=== PATIENT | female | born 1960 | race Caucasian/White ===

== ENCOUNTER 2020-04-30 10:09 | Outpatient (REF) | payer OTHER, SELFPAY ==
[2020-04-30 10:40] LABS: COVID-19 Test Negative (Negative)
== END 2020-04-30 10:10 | disposition home or self-care (01) ==
LOC: HO.LAB 10:09
PROVIDERS: Visit Provider Internal Medicine
DX: Z20.828 Contact with and (suspected) exposure to other viral communicable diseases (principal)
CPT/HCPCS: 87635

== ENCOUNTER 2020-06-08 08:11 | Outpatient (REF) | payer OTHER, SELFPAY ==
--- NOTE | 2020-06-08 08:15 | MM_ITS ---
EXAMINATION: MM SCREENING DIGITAL BREAST TOMOSYNTHESIS, BILATERAL CLINICAL INFORMATION: Screening. Asymptomatic. The lifetime risk of breast cancer based on the Tyrer-Cuzick Model is 15.2%. COMPARISON: Mammography: June 03, 2019 and studies dating back to September 15, 2013 TECHNIQUE: Digital breast tomosynthesis is performed in both the craniocaudal and mediolateral oblique views along with computer-aided detection (CAD). Synthesized 2D images are generated from the tomosynthesis. FINDINGS: There are scattered areas of fibroglandular density (ACR BI-RADS breast composition Category b). There are no significant masses, abnormal calcifications, or other abnormalities. MM/MM tomosynthesis screening BI IMPRESSION: There are no significant changes from prior study. ASSESSMENT: BI-RADS 1: Negative RECOMMENDATION: Routine annual mammography screening. This patient's information was entered into a reminder system with a target due date for their next mammogram.
== END 2020-06-08 08:12 | disposition home or self-care (01) ==
LOC: HO.MAMMO 08:11
PROVIDERS: PCP Family Medicine; Visit Provider Family Medicine
DX: Z12.31 Encounter for screening mammogram for malignant neoplasm of breast (principal)
CPT/HCPCS: 77063; 77067

== ENCOUNTER 2021-01-17 11:45 | Outpatient (REF) | payer OTHER, SELFPAY ==
[2021-01-17 15:56] LABS: TSH reflex Free T4 0.37 uIU/mL (0.32-4.0); Vitamin D 25-OH Total 32.5 ng/mL (>30)
== END 2021-01-17 11:46 | disposition home or self-care (01) ==
LOC: HO.LAB 11:45
PROVIDERS: PCP Family Medicine; Visit Provider Family Medicine
DX: Z13.220 Encounter for screening for lipoid disorders (principal); Z86.39 Personal history of other endocrine, nutritional and metabolic disease
CPT/HCPCS: 36415; 82306; 84443

== ENCOUNTER 2021-07-25 15:08 | Outpatient (REF) | payer OTHER, SELFPAY ==
--- NOTE | ~2021-07-25 | MM_ITS ---
EXAMINATION: MM SCREENING DIGITAL BREAST TOMOSYNTHESIS, BILATERAL CLINICAL INFORMATION: Screening. Asymptomatic. The lifetime risk of breast cancer based on the Tyrer-Cuzick Model is 15%. COMPARISON: Mammography: 06/08/2020, 06/03/2019, 05/04/2018 TECHNIQUE: Digital breast tomosynthesis is performed in both the craniocaudal and mediolateral oblique views along with computer-aided detection (CAD). Synthesized 2D images are generated from the tomosynthesis. FINDINGS: There are scattered areas of fibroglandular density (ACR BI-RADS breast composition Category b). Breast tissue composition borders on heterogeneously dense in the bilateral retroareolar regions. Neither breast shows abnormal calcifications. The bilateral axilla and skin contours are unremarkable. Right breast is no interval mass or architectural abnormality or developing density. Left CC view has questionable small asymmetric density posterior outer quadrant approximately 6 cm from nipple. There is no correlate on MLO view and finding is likely related to incompletely compressed glandular tissue or summation artifact. Patient will be recalled for additional imaging. MM/MM tomosynthesis screening BI IMPRESSION: 1. Left: Asymmetric density posterior outer breast on CC view possibly summation artifact or incompletely compressed glandular tissue. 2. Right: No mammographic evidence of malignancy. ASSESSMENT: BI-RADS 0: Incomplete - Need Additional Imaging Evaluation RECOMMENDATION: 1. Additional views of the left breast (spot CC, rolled CC x2). 2. Targeted ultrasound if warranted after review of the additional views. 3. Radiology department staff will contact the patient for additional imaging. This patient's information was entered into a reminder system with a target due date for their next mammogram.
== END 2021-07-25 15:09 | disposition home or self-care (01) ==
LOC: HO.MAMMO 15:08
PROVIDERS: PCP Family Medicine; Visit Provider Obstetrics & Gynecology
DX: Z12.31 Encounter for screening mammogram for malignant neoplasm of breast (principal)
CPT/HCPCS: 77063; 77067

== ENCOUNTER 2021-08-08 14:16 | Outpatient (REF) | payer OTHER, SELFPAY ==
--- NOTE | ~2021-08-08 | US_ITS ---
EXAMINATION: US DIAGNOSTIC ULTRASOUND BREAST, LEFT CLINICAL INFORMATION: Asymmetry lateral aspect. COMPARISON: Mammography of same day and July 25, 2021. TECHNIQUE: Ultrasound of the breast is performed with real-time porter scale imaging and color Doppler. FINDINGS: There is no focal suspicious finding. There is no solid mass, architectural abnormality, duct ectasia, or edema in the soft tissue planes. Results are discussed with the patient at time of visit. US/US breast LT limited IMPRESSION: No suspicious ultrasound abnormality of the left breast identified. ASSESSMENT: BI-RADS 1: Negative RECOMMENDATION: Routine annual mammography screening. This patient's information was entered into a reminder system with a target due date for their next mammogram.
--- NOTE | ~2021-08-08 | MM_ITS ---
EXAMINATION: MM DIAGNOSTIC DIGITAL BREAST TOMOSYNTHESIS, LEFT CLINICAL INFORMATION: Question small asymmetric density posterior outer left breast approximately 6 cm from nipple. COMPARISON: Mammography: July 25, 2021 and studies dating back to September 15, 2013 TECHNIQUE: Digital breast tomosynthesis is performed. 2D images are generated from the tomosynthesis. The following views are obtained: Full-field left rolled craniocaudal views. Spot compression left craniocaudal view and 90 degree mediolateral view. Targeted left breast ultrasound. FINDINGS: The breasts are heterogeneously dense, which may obscure small masses (ACR BI-RADS breast composition Category c). The additional views demonstrate the region of question to have represented superimposition of fibroglandular tissue with no definite persistent suspicious mass remaining and with a similar appearance to previous studies dating back to July 08, 2011. Targeted ultrasound to the lateral aspect of the left breast did not demonstrate any abnormal cystic or solid lesions. No region of abnormal distal sound shadowing was appreciated. No edematous change within the parenchyma is seen. Results are discussed with the patient at time of visit. MM/MM tomosynthesis added views L IMPRESSION: No persistent suspicious left breast finding. ASSESSMENT: BI-RADS 1: Negative RECOMMENDATION: Routine annual mammography screening. This patient's information was entered into a reminder system with a target due date for their next mammogram.
== END 2021-08-08 14:17 | disposition home or self-care (01) ==
LOC: HO.MAMMO 14:16
PROVIDERS: Visit Provider Obstetrics & Gynecology
DX: N64.89 Other specified disorders of breast (principal)
CPT/HCPCS: 76642; 77061; 77065

== ENCOUNTER 2021-10-17 08:20 | Outpatient (REF) | payer OTHER, SELFPAY ==
[2021-10-17 08:55] LABS: MANUAL DIFF FLAG NO
[2021-10-17 09:24] LABS: Basophils Absolute Auto 0.1 X10*3/uL (0.0-0.2); Basophils Percent Auto 1.4 % (0-2); Eosinophils Absolute Auto 0.1 X10*3/uL (0.0-0.4); Eosinophils Percent Auto 2.4 % (0-4); Hematocrit 42.5 % (37.0-47.0); Hemoglobin 14.2 g/dl (12.0-16.0); Imm Gran Abs Auto 0.01 X10*3/uL (0.00-0.03); Imm Gran Pct Auto 0.2 % (0.0-0.4); Lymphocytes Absolute Auto 1.5 X10*3/uL (1.2-4.9); Lymphocytes Percent Auto 30.5 % (20-40); Mean Corpuscular HGB Conc 33.4 g/dl (31.0-35.0); Mean Corpuscular Hemoglobin 30.4 pg (27.0-33.0); Monocytes Absolute Auto 0.5 X10*3/uL (0.1-1.2); Monocytes Percent Auto 9.6 % (2-11); Neutrophils Absolute Auto 2.8 x10*3/uL (2.0-8.3); Neutrophils Percent Auto 55.9 % (45-73); Platelet Count 198 X10*3/uL (160-400); Red Blood Count 4.67 X10*6/uL (4.20-5.50); Red Cell Distribution Width 12.1 % (11.0-16.0)
[2021-10-17 09:30] LABS: Estimated Average Glucose 103 mg/dL; Hemoglobin A1c % 5.2 %
[2021-10-17 09:56] LABS: Alanine Aminotransferase 19 U/L (0-31); Albumin Level 4.5 g/dL (3.5-5.0); Alkaline Phosphatase 81 U/L (39-117); Anion Gap 13 (12-20); Aspartate Amino Transferase 23 U/L (5-31); Bilirubin Total 0.6 mg/dL (0.0-1.0); Blood Urea Nitrogen 17 mg/dL (9-16); C Reactive Protein 0.09 mg/dL (< or = 0.50); Calcium 9.9 mg/dL (8.4-10.2); Carbon Dioxide 29 mmol/L (22-29); Chloride 103 mmol/L (96-108); Cholesterol 291 mg/dL; Estimated Glomerular Filt Rate > 60; Glucose Random 91 mg/dL (60-115); HDL Cholesterol 86 mg/dL; LDL Cholesterol Calculated 189 mg/dl; Rheumatoid Factor < 15.0 IU/mL (<15.0); Sodium 140 mmol/L (135-145); Total Protein 7.4 g/dL (6.5-8.0); Triglycerides 81 mg/dL; Uric Acid 4.1 mg/dL (2.4-5.7)
[2021-10-17 10:20] LABS: Free T4 (Free Thyroxine) 1.07 ng/dL (0.71-1.85); Thyroid Stimulating Hormone 1.35 uIU/mL (0.32-4.0)
[2021-10-17 10:44] LABS: Insulin 6 uU/mL (2-29)
[2021-10-18 10:06] LABS: Thyroglobulin Antibodies <1 IU/mL (< or = 1); Thyroid Peroxidase Antibodies 1 IU/mL (<9)
[2021-10-20 13:46] LABS: Anti Nuclear Antibody Screen NEGATIVE (NEGATIVE)
[2021-10-22 17:51] LABS: Triiodothyronine T3 Reverse 15 ng/dL (8-25)
== END 2021-10-17 08:21 | disposition home or self-care (01) ==
LOC: HO.LAB 08:20
PROVIDERS: PCP Registered Nurse; Visit Provider Registered Nurse
DX: R73.01 Impaired fasting glucose (principal); E55.9 Vitamin D deficiency, unspecified; E78.2 Mixed hyperlipidemia; I10 Essential (primary) hypertension; M06.4 Inflammatory polyarthropathy; R53.83 Other fatigue; E03.9 Hypothyroidism, unspecified
CPT/HCPCS: 36415; 80053; 80061; 82306; 83036; 83525; 84439; 84443; 84482; 84550; 85025; 86038; 86039; 86140; 86376; 86431; 86800

== ENCOUNTER 2022-05-27 10:33 | Outpatient (REF) | payer OTHER, SELFPAY ==
[2022-05-27 10:52] LABS: MANUAL DIFF FLAG NO
[2022-05-27 11:02] LABS: Basophils Absolute Auto 0.1 X10*3/uL (0.0-0.2); Basophils Percent Auto 1.1 % (0-2); Eosinophils Absolute Auto 0.1 X10*3/uL (0.0-0.4); Eosinophils Percent Auto 1.8 % (0-4); Hematocrit 40.9 % (37.0-47.0); Hemoglobin 13.6 g/dl (12.0-16.0); Lymphocytes Absolute Auto 1.3 X10*3/uL (1.2-4.9); Lymphocytes Percent Auto 30.2 % (20-40); Mean Corpuscular HGB Conc 33.3 g/dl (31.0-35.0); Mean Corpuscular Hemoglobin 30.3 pg (27.0-33.0); Mean Corpuscular Volume 91.1 fL (80.0-98.0); Mean Platelet Volume 8.7 fL (9.4-12.3); Monocytes Absolute Auto 0.4 X10*3/uL (0.1-1.2); Monocytes Percent Auto 9.7 % (2-11); Neutrophils Absolute Auto 2.5 x10*3/uL (2.0-8.3); Neutrophils Percent Auto 57.2 % (45-73); Platelet Count 208 X10*3/uL (160-400); Red Blood Count 4.49 X10*6/uL (4.20-5.50); Red Cell Distribution Width 11.9 % (11.0-16.0); White Blood Count 4.4 X10*3/uL (4.8-10.8)
[2022-05-27 12:20] LABS: Alanine Aminotransferase 17 U/L (0-31); Albumin Level 4.6 g/dL (3.5-5.0); Alkaline Phosphatase 81 U/L (39-117); Anion Gap 12 (12-20); Aspartate Amino Transferase 23 U/L (5-31); Bilirubin Total 0.4 mg/dL (0.0-1.0); Blood Urea Nitrogen 16 mg/dL (9-16); Calcium 9.7 mg/dL (8.4-10.2); Carbon Dioxide 32 mmol/L (22-29); Chloride 103 mmol/L (96-108); Cholesterol 283 mg/dL; Estimated Glomerular Filt Rate > 60; Glucose Random 91 mg/dL (60-115); HDL Cholesterol 87 mg/dL; LDL Cholesterol Calculated 185 mg/dl; Potassium 4.9 mmol/L (3.3-5.1); Sodium 142 mmol/L (135-145); Total Protein 7.2 g/dL (6.5-8.0); Triglycerides 57 mg/dL; Uric Acid 4.2 mg/dL (2.4-5.7)
[2022-05-27 12:34] LABS: Free T4 (Free Thyroxine) 1.02 ng/dL (0.71-1.85); Insulin 7 uU/mL (2-29); Thyroid Stimulating Hormone 0.58 uIU/mL (0.32-4.0)
[2022-05-29 17:41] LABS: Thyroglobulin Antibodies <1 IU/mL (< or = 1); Thyroid Peroxidase Antibodies 1 IU/mL (<9)
[2022-06-01 15:07] LABS: Triiodothyronine T3 Reverse 15 ng/dL (8-25)
[2022-06-02 21:42] LABS: Apolipoprotein B 113 mg/dL (<90)
== END 2022-05-27 10:34 | disposition home or self-care (01) ==
LOC: HO.LAB 10:33
PROVIDERS: PCP Registered Nurse; Visit Provider Registered Nurse
DX: I10 Essential (primary) hypertension (principal); E03.9 Hypothyroidism, unspecified; E55.9 Vitamin D deficiency, unspecified; E78.5 Hyperlipidemia, unspecified; R53.83 Other fatigue; M13.0 Polyarthritis, unspecified
CPT/HCPCS: 80053; 80061; 82172; 83525; 84439; 84443; 84482; 84550; 85025; 86376; 86800

== ENCOUNTER 2023-07-01 06:17 | Outpatient (REF) | payer OTHER, SELFPAY ==
[2023-07-01 06:41] LABS: MANUAL DIFF FLAG NO
[2023-07-01 07:24] LABS: Estimated Average Glucose 105 mg/dL; Hemoglobin A1c % 5.3 % (<6.0)
[2023-07-01 07:25] LABS: Basophils Absolute Auto 0.1 X10*3/uL (0.0-0.2); Basophils Percent Auto 1.7 % (0-2); Eosinophils Absolute Auto 0.1 X10*3/uL (0.0-0.4); Eosinophils Percent Auto 2.4 % (0-4); Hematocrit 41.7 % (37.0-47.0); Imm Gran Abs Auto 0.01 X10*3/uL (0.00-0.03); Imm Gran Pct Auto 0.2 % (0.0-0.4); Lymphocytes Absolute Auto 1.6 X10*3/uL (1.2-4.9); Lymphocytes Percent Auto 35.4 % (20-40); Mean Corpuscular HGB Conc 33.6 g/dl (31.0-35.0); Mean Corpuscular Hemoglobin 30.6 pg (27.0-33.0); Mean Platelet Volume 8.7 fL (9.4-12.3); Monocytes Absolute Auto 0.4 X10*3/uL (0.1-1.2); Monocytes Percent Auto 9.4 % (2-11); Neutrophils Absolute Auto 2.3 x10*3/uL (2.0-8.3); Neutrophils Percent Auto 50.9 % (45-73); Platelet Count 240 X10*3/uL (160-400); Red Blood Count 4.58 X10*6/uL (4.20-5.50); White Blood Count 4.6 X10*3/uL (4.8-10.8)
[2023-07-01 07:51] LABS: Alanine Aminotransferase 12 U/L (0-31); Albumin Level 4.4 g/dL (3.5-5.0); Alkaline Phosphatase 76 U/L (39-117); Anion Gap 12 (12-20); Aspartate Amino Transferase 16 U/L (5-31); Bilirubin Total 0.4 mg/dL (0.0-1.0); Blood Urea Nitrogen 20 mg/dL (9-16); Carbon Dioxide 30 mmol/L (22-29); Chloride 104 mmol/L (96-108); Cholesterol 287 mg/dL (<200); Estimated Glomerular Filt Rate > 60; Glucose Random 97 mg/dL (60-115); HDL Cholesterol 77 mg/dL (>40); LDL Cholesterol Calculated 192 mg/dL (<100); Potassium 4.2 mmol/L (3.3-5.1); Sodium 142 mmol/L (135-145); Total Protein 7.3 g/dL (6.5-8.0); Triglycerides 90 mg/dL (<150)
[2023-07-01 08:08] LABS: Insulin 5 uU/mL (2-29); Thyroid Stimulating Hormone 0.86 uIU/mL (0.32-4.0); Vitamin D 25-OH Total 48.3 ng/mL (>30)
[2023-07-02 23:03] LABS: Thyroglobulin Antibodies <1 IU/mL (< or = 1)
[2023-07-07 08:38] LABS: Triiodothyronine T3 Reverse 12 ng/dL (8-25)
[2023-07-07 15:34] LABS: Apolipoprotein A1 216 mg/dL (>=125); Apolipoprotein B 125 mg/dL (<90)
== END 2023-07-01 06:18 | disposition home or self-care (01) ==
LOC: HO.LAB 06:17
PROVIDERS: PCP Registered Nurse; Visit Provider Registered Nurse
DX: R53.83 Other fatigue (principal); E05.90 Thyrotoxicosis, unspecified without thyrotoxic crisis or storm; E78.00 Pure hypercholesterolemia, unspecified
CPT/HCPCS: 36415; 80053; 80061; 82172; 82306; 83036; 83525; 84436; 84443; 84482; 85025; 86800

== ENCOUNTER 2023-10-19 07:47 | Outpatient (REF) | payer OTHER, SELFPAY ==
--- NOTE | ~2023-10-19 | XR_ITS ---
EXAMINATION: XR SHOULDER, LEFT CLINICAL INFORMATION: Unspecified injury left shoulder. COMPARISON: None available. TECHNIQUE: AP external rotation, Grashey, scapular Y, and axillary views of the left shoulder. FINDINGS: Degenerative changes with joint space narrowing, hypertrophic change and soft tissue calcifications at the acromioclavicular joint. Glenohumeral alignment preserved. Degenerative changes in the imaged upper thoracic spine. XR/XR shoulder LT min 2V IMPRESSION: Moderate changes at the acromioclavicular joint.
== END 2023-10-19 07:48 | disposition home or self-care (01) ==
LOC: HO.XRAY 07:47
PROVIDERS: Visit Provider Registered Nurse
DX: S40.912A Unspecified superficial injury of left shoulder, initial encounter (principal)
CPT/HCPCS: 73030

== ENCOUNTER 2023-11-15 18:04 | Outpatient (REF) | payer OTHER, SELFPAY ==
--- NOTE | ~2023-11-15 | MR_ITS ---
EXAMINATION: MR SHOULDER WITHOUT CONTRAST, LEFT CLINICAL INFORMATION: Acute pain. COMPARISON: None available. TECHNIQUE: MRI of the shoulder without contrast was performed on a high-field scanner. Incomplete study. MRI mechanical tissues. Study could not be completed. A coronal T1, axial T2 fat-sat, sagittal T2 sequence obtained. FINDINGS: Limited incomplete study. Structures are not reliably evaluated. Repeat MRI is recommended. On the limited sequences, the suspected findings are as follows: ROTATOR CUFF: Heterogeneous T1 signal in the supraspinatus and infraspinatus tendon could reflect tendinosis, not reliably evaluated. Teres minor is intact. Mild subscapularis tendinosis, with deep surface fraying. No muscle atrophy or fatty infiltration. BICEPS: Grossly intact CORACOACROMIAL ARCH: The undersurface of the acromion is flat with mild lateral downsloping. Suspected mild acromioclavicular arthritis. LABRUM/CAPSULE: Incompletely evaluated. Small caliber of the anterior and posterior labrum. GLENOHUMERAL JOINT/MARROW: No acute fracture is identified on the limited sequences. Small effusion. MR/MR shoulder LT wo con IMPRESSION: Limited incomplete study. Structures not reliably evaluated. Repeat MRI is recommended. Suspected findings are as follows: 1. Mild subscapularis tendinosis, deep surface fraying. 2. Question supraspinatus and infraspinatus tendinopathy. 3. Small glenohumeral joint effusion.
== END 2023-11-15 18:05 | disposition home or self-care (01) ==
LOC: HO.MRI 18:04
PROVIDERS: PCP Registered Nurse; Visit Provider Registered Nurse
DX: M25.512 Pain in left shoulder (principal); M54.10 Radiculopathy, site unspecified
CPT/HCPCS: 73221

== ENCOUNTER 2023-12-01 07:48 | Outpatient (AMB) | payer OTHER, SELFPAY ==
--- NOTE | 2023-12-01 08:07 | A.OFFVIS_ITS ---
Vital Signs 12/01/23 08:14 Height 5 ft 4 in Weight 130 lb BMI 22.3 Handedness Right Intake Visit Reasons: New Pt - Left Shoulder Pain Intake Note: Selena a 63 year old right hand dominant female who presents today as a new patient for an evaluation of left shoulder pain. MRI was done on 11/15/23. Patient reports ongoing pain since May of last year. Patient denies any injury. History of 10 sessions of PT which was making her pain a little worse, however she is doing a little better with rest. Pain is worse at night which wakes her up. She states that her pain is focused on the anterior and postierer aspect of the shoulder and sometime radiates up to her neck. Allergies No Known Allergies Allergy (Verified 12/01/23 08:13) HPI HPI New Pt - Left Shoulder Pain: Details: 63-year-old right hand dominant female who presents to the office today for evaluation of left shoulder pain for 7 months. She currently states she has a dull achy pain at the anterior and posterior aspect of her left shoulder that radiates up to her neck and down to her elbow. Her pain is aggravated with reaching back, wearing clothes and at night which wakes her up and limits her with going to the gym. She has not had any shoulder injury in the past. She finds mild relief with rest and minimal relief with ice and ibuprofen. She works in physical therapy back office and had attended 10 physical therapy sessions which made her pain a little worse and she was referred to our office. She does not have a history of diabetes. [facility] Social History (Updated 12/01/23 @ 08:14 by Will Erwin) Alcohol intake: current Alcohol intake frequency: holidays/special occasions only Patient Tobacco Use Status: Never used Tobacco Current occupational status: employed Current occupation: Physical therapy/ right hand dominant Review of Systems Const All systems reviewed & are unremarkable except as noted in HPI and below Physical Exam Vital Signs: BMI result Body Mass Index 22.3 Const General: cooperative, healthy appearing, comfortable, no acute distress, well developed and alert Orientation/consciousness: patient oriented x3 HEENT Head: Yes normal to inspection, Yes normocephalic and Yes atraumatic Eyes General: appearance normal, both eyes and all related structures Resp Effort & Inspection: normal respiratory effort and able to speak in complete sentences Cardio Rate: regular rate Peripheral pulses: Peripheral pulses 2+ throughout GI Palpation (GI): Soft to palpation Skin Lesions: no lesions Rashes: no rashes Neuro General: patient oriented x3 Extrem Other: Left shoulder normal to inspection. Tenderness over the bicipital groove and along the deltoid region of the shoulder. Forward flexion to 175, external rotation to 90, internal rotation to S1. 5/5 RTC strength. Positive Lawrence and O'Briens. NVI. Results Reviewed Results Reviewed: XR shoulder LT min 2V IMPRESSION: Moderate changes at the acromioclavicular joint. IMPRESSION: 1. Mild-moderate supraspinatus and infraspinatus tendinosis. No measurable tear or tendon retraction is seen. 2. Mild subscapularis tendinosis with deep surface fraying. 3. Questionable mild biceps tendinosis. 4. Mild-moderate acromioclavicular arthritis. 5. Posterosuperior labral findings suggesting degeneration with fraying/tear. 6. Small glenohumeral joint effusion. Assessment & Plan Assessment & Plan (1) Biceps tendonitis on right: Code(s): M75.21 - Bicipital tendinitis, right shoulder Category: Medical (2) Tendonitis of left rotator cuff: Code(s): M75.82 - Other shoulder lesions, left shoulder Category: Medical Plan We discussed options which include PT, NSAIDs and injections. The patient will defer on the injection today and proceed with PT and NSAIDs. A prescription for ibuprofen was also sent to her pharmacy which she will take for 2 weeks. If symptoms persist or worsens over next 6 weeks, patient will contact the office to proceed with a left shoulder steroid injection, otherwise follow-up as needed. Orders: Orders PT Evaluation and Treatment Today M75.21 - Bicipital tendinitis, right shoul anamika, M75.82 - Other shoulder lesions, left shoulder Medications: New ibuprofen 800 mg PO Q8H PRN 90 tabs 3RF pain 30 days S52.209D - Unspecified fracture of shaft of unspecified ulna, subsequent encounter for closed fracture with routine healing Patient Instructions: Scribed for Tom Saldivar PA-C, by Fransisco Manzano medical office manager, on 12/01/2023 at 8:00 AM EST.? I, Tom Saldivar PA-C, have personally reviewed and agree with the information entered by the scribe. Coding Level of Care Code New Pt Level 3 (66924) Diagnoses Biceps tendonitis on right M75.21 Tendonitis of left rotator cuff M75.82
[2023-12-01 08:14] VITALS: BMI 22.3
== END 2023-12-01 08:57 | disposition home or self-care (01) ==
PROVIDERS: PCP Registered Nurse; Visit Provider Physician Assistant
DX: M75.21 Bicipital tendinitis, right shoulder (principal); M75.82 Other shoulder lesions, left shoulder
CPT/HCPCS: 99204

== ENCOUNTER → 2023-12-01 07:48 | Outpatient (BNVA) | payer OTHER, SELFPAY | PROVIDERS: PCP Registered Nurse; Visit Provider Physician Assistant ==

== ENCOUNTER 2023-12-21 07:56 | Outpatient (AMB) | payer OTHER, SELFPAY ==
--- NOTE | 2023-12-21 08:00 | A.OFFPC_ITS ---
Vital Signs 12/21/23 08:01 Height 5 ft 4 in Weight 131 lb BMI 22.5 BP 138/54 L Blood Pressure Location Rt brachial Position Sitting Pulse 76 Pulse Source Pulse Oximeter Pulse Oximetry (%) 98 Oxygen Delivery Method Room Air Intake Visit Reasons: establish care Is last menstrual period known: Yes (age 49) Post menopausal: Yes Allergies No Known Allergies Allergy (Verified 12/21/23 08:02) Medication List - Last Reconciled 12/21/23 by ALIA ElizondoP- acetaminophen (Acetaminophen Extra Strength) 500 mg PO Q6H PRN ibuprofen 800 mg PO Q8H PRN 30 days lisinopril 20 mg PO DAILY Tobacco use date assessed: 12/21/23 Dental Screening Dental Screen Date: 12/21/23 Did you have a dental visit in the last 12 months?: Yes Did you have a dental problem in the last 6 months where you did not have access to dental care?: No Was dental information given to patient?: Patient has dentist HPI HPI Comments History of Present Illness Details 63-year-old female with hyperlipidemia, bicep tedonitis, elevated lipoprotein B, graves disease Family hx: Father: age 49 [address] Mom Breast CA Health Maintenance: ? Colon age 54 @ [facility]. Normal. Interested in cologaurd. ? Mammo 08/08/21, ordered today ? DEXA due, ordered today ? PAP @ [facility] in [facility] Fall 2021 normal. Aged out. Reports hx of normal. No family hx. ? Tdap UTD in last 10 years. Specialists: Endo - Dr Jorge Johns > cleared Ortho PT Here today to establish care. Coming from [facility]. No old medical records available to me. Callystro review shows the last labs 07/01/2023 show chronically low WBC 4.6, and MPV, otherwise normal CBC, normal CMP, total cholesterol 287, LDL 192, HDL 77, normal apolipoprotein a and elevated apolipoprotein B, normal vitamin-D, normal thyroid functions Hyperthyroidism/Graves dx around age 49, on treatment for 2 years, Atenolol and methimazole. Endo visits [id number]. Then weaned off medications and has been w/o meds and w/o sx since this time. Left shoulder tendonitis, started in May after working out at the gym. Using APAP and NSAIDS. In September started PT. Fairchance like PT made it worse. Completed PT October. Had Xrays done by previous PCP. Negative. MRI then completed November 2023. Not a tear but a moderate tendonosis. Went to see Ortho. Offered inj vs surgery. Declined at this time. Completed 2 week NSAID therapy on Wednesday. Is back to PT for the L shoulder with + effect. Worries she has something else going on wondering why she is not recovering. Having low back resolved s/p PT. Has mild anxiety and depressive sx related social circumstances and aging. Started in the last year. HTn well controlled on current med. does not want to be on meds if she does not have to. Plan: Would like autoimmune work up. Refer to Cards for + apolipo B and family hx Return to gym to help mental health. RTO Sept for FU HTN, Mood and Cardiac referral, sooner as needed. ON LICENSE OF [facility] Medical History (Updated 12/21/23 @ 09:11 by Sadaf Laboy, [employer]-) Biceps tendonitis on right Family History Mother No problems noted. Social History (Updated 12/01/23 @ 08:14 by Will Erwin) Housing: House Alcohol intake: current Alcohol intake frequency: holidays/special occasions only Patient Tobacco Use Status: Never used Tobacco e-Cigarette/Vaping Use: Never Used Second Hand Smoke Exposure: No Current occupational status: employed Current occupation: Physical therapy/ right hand dominant Cognitive needs: No Hearing needs: No Vision needs: Yes Questionnaire PHQ-9 Over the last 2 weeks, how often have you been bothered by any of the following problems? 1. Little interest or pleasure in doing things: not at all 2. Feeling down, depressed, or hopeless: not at all 3. Trouble falling or staying asleep, or sleeping too much: not at all 4. Feeling tired or having little energy: several days 5. Poor appetite or overeating: not at all 6. Feeling bad about yourself - or that you are a failure or have let yourself or your family down: not at all 7. Trouble concentrating on things, such as reading the newspaper or watching television: not at all 8. Moving or speaking so slowly that other people could have noticed. Or the opposite - being so fidgety or restless that you have been moving around a lot more than usual: not at all 9. Thoughts that you would be better off or of hurting yourself in some way: not at all Total score: 1 Depression Screening Interpretation: Negative Depression Screening Done: Yes 95878 - PHQ-9 Billing: Yes Source: Developed by Drs. Reed Harrison, Rosita Patton, Crispin Michele and colleagues, with an educational rick from [employer]. Thrive Questionnaire Date Thrive assessed: 12/21/23 I am a: Patient What is your living situation today?: I have a steady place to live Within the past 12 months, did the food you bought not last and you didn't have the money to get more?: Never true Within the past 12 months, did you worry whether your food would run out before you got money to buy more?: Never true Do you have trouble paying for medicines?: No Do you have trouble getting transportation to medical appointments?: No Do you have trouble paying your heating and electricity bill?: No Do you have trouble taking care of your child, family member or friend?: No Do you have trouble with day-to-day activities such as bathing, preparing meals, shopping, managing finances, etc.?: No Are you currently unemployed and looking for a job?: No Are you interested in more education?: No Please select the resources that you would like help with: None Currently or been in a relationship where the following occur: no concerns reported THRIVE Score: 0 AUDIT C Alcohol Use Questionnaire (AUDIT-C) 1. How often do you have a drink containing alcohol?: Monthly or less 2. How many drinks containing alcohol do you have on a typical day when you are drinking?: 1 or 2 3. How often do you have six or more drinks on one occasion?: Never Total Score: 1 Score Reviewed/Action Taken: Yes TANNER-7 AMB Questionnaire TANNER-7 Date TANNER - 7 assessed: 12/21/23 Feeling nervous, anxious, or on edge: 0 = Not at all Not being able to stop or control worryin = Not at all Worrying too much about different things: 0 = Not at all Trouble relaxin = Not at all Being so restless that it is hard to sit still: 0 = Not at all Becoming easily annoyed or irritable: 0 = Not at all Feeling afraid as if something awful might happen: 0 = Not at all Total TANNER-7 score (0-4 normal; 5-9 mild; 10-14 moderate; 15-21 severe): 0 Source: Developed by Drs. Reed Harrison, Rosita Patton, Crispin Michele and colleagues, with an educational rick from [employer]. TANNER-7 Assessment Billing TANNER-7 Assessment Tool: TANNER-7 Assessment 43397 Review of Systems Const All systems reviewed & are unremarkable except as noted in HPI and below Physical exam (Primary Care) Vital Signs: Last Vital Signs Pulse 76 12/21/23 08:01 BP 138/54 L 12/21/23 08:01 Pulse Ox 98 12/21/23 08:01 Oxygen Delivery Method Room Air 12/21/23 08:01 BMI result Body Mass Index 22.5 Tobacco/Smoking Status: Tobacco use Status Tobacco use date assessed 12/21/23 12/21/23 08:19 Patient Tobacco Use Status Never used Tobacco 12/21/23 08:02 e-Cigarette/Vaping Use Never Used 12/21/23 08:19 PHQ-9: PHQ-9 Score PHQ-9: Total score 1 12/21/23 08:12 Depression Screening Interpretation: Negative Thrive Assessment: Date of Thrive Assessment Date Thrive assessed 12/21/23 12/21/23 08:12 Currently or been in a relationship where the following occur: no concerns reported Const Other: awake alert NAD RRR LS CTAB No edema BLE Limited ROM all directions L shoulder Mood and affect approp Assessment and Plan Assessment & Plan (1) 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 managed by endo in the past euthyroid on labs 06/2023 Code(s): E05.00 - Thyrotoxicosis with diffuse goiter without thyrotoxic crisis or storm (5) HTN (hypertension): Comment: well controlled on lisinopril 20mg , cont Code(s): I10 - Essential (primary) hypertension Qualifiers: Hypertension type: primary hypertension Qualified Code(s): I10 - Essential (primary) hypertension Plan This note is constructed using voice recognition software. While every effort has been made to ensure accuracy in dining room server, still errors may have been included Sometimes, these errors may affect the content or meaning of the given sentence . Total time spent caring for the patient today was 40 minutes. This includes time spent before the visit reviewing the chart, time spent during the visit, and time spent after the visit on documentation Orders: Orders LESLEE Reflex Titer and Pattern Today M79.10 - Myalgia, unspecified site Lyme IgG/IgM w/reflex to WB Today M79.10 - Myalgia, unspecified site CRP High Sensitivity Today M79.10 - Myalgia, unspecified site Erythrocyte Sedimentation Rate Today M79.10 - Myalgia, unspecified site MM screening mammo BI Today Z12.31 - Encounter for screening mammogram for malignant neoplasm of breast XR DEXA axial skeleton Today Z78.0 - Asymptomatic menopausal state Referrals Cardiology Referral E78.01 - Familial hypercholesterolemia Cologuard Test Z12.11 - Encounter for screening for malignant neoplasm of colon, Z12.12 - Encounter for screening for malignant neoplasm of rectum Medications: New lisinopril 20 mg PO DAILY 90 tabs 1RF Patient Instructions: Plan: Would like autoimmune work up. Refer to Cards for + apolipo B and family hx Return to gym to help mental health. RTO Sept for FU HTN, Mood and Cardiac referral, sooner as needed. 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
[2023-12-21 08:01] VITALS: BP 138/54; PULSE 76; O2SAT 98; BMI 22.5
== END 2023-12-21 08:52 | disposition home or self-care (01) ==
PROVIDERS: PCP Nurse Practitioner Family; Visit Provider Nurse Practitioner Family
DX: E78.01 Familial hypercholesterolemia (principal); M79.10 Myalgia, unspecified site; Z78.0 Asymptomatic menopausal state; E05.00 Thyrotoxicosis with diffuse goiter without thyrotoxic crisis or storm; I10 Essential (primary) hypertension
CPT/HCPCS: 99204

== ENCOUNTER 2023-12-23 07:01 | Outpatient (REF) | payer OTHER, SELFPAY ==
[2023-12-23 08:18] LABS: Erythrocyte Sedimentation Rate 6 MM/HR (0-20)
[2023-12-24 11:39] LABS: CRP High Sensitivity 0.5 mg/L
[2023-12-24 14:33] LABS: Lyme Blot 2.05 index
[2023-12-27 11:59] LABS: Lyme Abs Screen POSITIVE
[2023-12-27 15:13] LABS: Anti Nuclear Antibody Screen NEGATIVE (NEGATIVE)
[2023-12-27 21:18] LABS: 18 KD (IgG) Band REACTIVE; 23 KD (IgG) Band NON-REACTIVE; 23 KD (IgM) Band NON-REACTIVE; 28 KD (IgG) Band NON-REACTIVE; 30 KD (IgG) Band NON-REACTIVE; 39 KD (IgM) Band NON-REACTIVE; 39KD (IgG) Band NON-REACTIVE; 41 KD (IgM) Band NON-REACTIVE; 41KD (IgG) Band REACTIVE; 45 KD (IgG) Band NON-REACTIVE; 58 KD (IgG) Band NON-REACTIVE; 66 KD (IgG) Band NON-REACTIVE; 93 KD (IgG) Band NON-REACTIVE; Lyme IgG Blot Interp NEGATIVE (NEGATIVE); Lyme IgM Blot Interp NEGATIVE (NEGATIVE)
== END 2023-12-23 07:02 | disposition home or self-care (01) ==
LOC: HO.LAB 07:01
PROVIDERS: PCP Nurse Practitioner Family; Visit Provider Nurse Practitioner Family
DX: M79.10 Myalgia, unspecified site (principal)
CPT/HCPCS: 36415; 85652; 86038; 86141; 86617; 86618

== ENCOUNTER 2024-02-16 10:43 | Outpatient (AMB) | payer OTHER, SELFPAY ==
--- NOTE | 2024-02-16 10:45 | A.OFFVIS_ITS ---
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 She is 63-year-old female with strong family history for p remature atherosclerosis with father having bypass at age 49 and brother also having a bypass at a younger age. She has never had any vascular events. She has high lipids with last LDL 192 mg/dL consistent with heterozygous familial hypercholesterolemia. Apolipoprotein B levels were done which were also elevated consistent with increased cardiovascular risk. She says she has not been able to exercise as much since her shoulder injury. She was an avid high- intensity exercise before that. 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 Denies any exertional anginal sounding chest discomfort. She is worried about her hyperlipidemia and comes here for follow for further recommendations. She has longstanding history of hypertension which is currently well managed with lisinopril therapy and says usually at her home blood pressures in the 116 systolic range. She does not measure blood pressure during work situation. However she says very often with doctor's visit she has significantly elevated blood pressure was noted today. She had significant elevated blood pressures systolic 180 range. She was not orthostatic. However she does complain of orthostatic lightheadedness when she gets up suddenly. Symptoms last for few seconds. She has never had a syncopal episode. Denies any heart failure symptoms. Denies any prolonged palpitations irregular heartbeat. [facility] Medical History Biceps tendonitis on right Family History Mother Breast cancer Father CAD (coronary artery disease) Brother CAD (coronary artery disease) Hyperlipemia Social History Housing: House Alcohol intake: current Alcohol intake frequency: holidays/special occasions only Patient Tobacco Use Status: Never used Tobacco e-Cigarette/Vaping Use: Never Used Second Hand Smoke Exposure: No Current occupational status: employed Current occupation: Physical therapy/ right hand dominant Cognitive needs: No Hearing needs: No Vision needs: Yes Review of Systems Const Denies chills, Denies daytime sleepiness, Denies fatigue, Denies fever(s), Denies frequent falls, Denies poor appetite, Denies snoring, Denies stops breathing during sleep, Denies weakness, Denies weight gain and Denies weight loss Eyes Denies loss of vision ENT Reports dizziness and Denies hearing loss Card Denies chest pain, Denies claudication, Denies leg edema, Denies lightheadedness, Denies palpitations, Denies dyspnea, Denies dyspnea on exertion and Denies orthopnea Resp Denies cough, Denies excessive phlegm production, Denies dyspnea, Denies dyspnea on exertion, Denies snoring and Denies wheezing GI Denies abdominal pain, Denies hematochezia, Denies change in bowel habits, Denies nausea and Denies vomiting Denies urinary frequency and Denies dysuria Musc Denies arthralgias, Denies muscle weakness, Denies numbness and Denies other (frequent falls) Skin/Breast Denies nail changes and Denies rash Neuro Denies Abnormal speech present, Reports dizziness, Denies frequent falls, Denies loss of vision, Denies memory loss, Denies numbness and Denies weakness Psych Denies depression and Denies memory loss Endo Denies fatigue and Denies palpitations Danis/Lymph Reports easy bruising and Reports other (anemia) Aller/Immun Denies wheezing Physical Exam Vital Signs: Last Vital Signs Pulse 89 02/16/24 11:21 BP 184/87 H 02/16/24 11:21 BMI result Body Mass Index 22.7 Const General: cooperative, comfortable, no acute distress, well developed, alert, awake and Physically active Nutritional Appearance: well nourished and thin Orientation/consciousness: patient oriented x3 Limitations: no limitations HEENT Head: Yes normocephalic and Yes atraumatic Neck Neck: Yes trachea midline, Yes supple and Yes no JVD Carotids: no bruits Resp Effort & Inspection: normal respiratory effort Auscultation: clear to auscultation bilaterally Cardio Jugular venous distension: no JVD Palpation: normal PMI Rate: regular rate Rhythm: regular rhythm Heart sounds: S1 normal heart sound present, S2 normal heart sound present, no click, no gallops and no murmurs GI Auscultation: normal bowel sounds Skin General skin exam: no rashes or lesions noted Neuro General: patient oriented x3 and no focal motor deficits Speech: No Abnormal speech present Extrem General: Yes no clubbing, cyanosis or edema Office Procedures EKG Details: EKG shows normal sinus rhythm with right atrial enlargement with rightward axis with pulmonary disease pattern with J-point depression 14142-[id number], Complete Assessment & Plan Assessment & Plan (1) Heterozygous familial hypercholesterolemia: Code(s): E78.01 - Familial hypercholesterolemia Category: Medical Plan: Patient with significantly elevated LDL, which by ACC/aha guideline a by itself treatment target for primary prevention. However she wants further screening. She is currently no exertional symptoms suggestive of ischemia. This point time she does not need stress test testing unless her coronary calcium score sig nificant elevated. I suggest coronary calcium score to further guide treatment. If she has significant coronary calcium score will require further stress testing/angiography. This was discussed with her. Meanwhile I do recommend her to be started on at least moderate intensity statin therapy to at current time target goal LDL less than 100 mg/dL. However she has any evidence of coronary atherosclerosis and more intense lipid modification therapy should be pursued. She is currently not sure as to she wants to pursue statin therapy. She would like to wait for the coronary calcium score results. (2) HTN (hypertension): Comment: well controlled on lisinopril 20mg , cont Code(s): I10 - Essential (primary) hypertension Category: Medical Qualifiers: Hypertension type: primary hypertension Qualified Code(s): I10 - Essential (primary) hypertension Plan: Hypertension with significantly elevated hypertension noted on today's clinical visit. She says she has white coat hypertension. She has had blood pressures home are well controlled. I have advised her to maintain a log home as well as maintain a log of blood pressure at work in high stress environment. If she has adequately control blood pressure on this management no further treatment necessary otherwise will need to pursue further blood pressure management. She does also have symptoms of orthostatic lightheadedness which are most likely probably suggestive of under atherosclerotic disease. I would suggest her to maintain adequate hydration. Orthostatic precautions were discussed. Given her baseline elevated blood pressure not sure if she would be a candidate for any other therapies for the same. Importance of good blood pressure control was discussed. Advised low-salt diet. Advised to maintain activity level as tolerated. Will obtain echocardiogram given her baseline EKGs slightly abnormal to evaluate for hypertensive heart disease. Follow up in the clinic in 1 year's time, sooner p.r.n.. Thank you for allowing me to partake in his care Orders: Orders CA echo transthoracic complete Today I10 - Essential (primary) hypertension CT Coronary Calcium Score 1 Week E78.01 - Familial hypercholesterolemia Coding Level of Care Code New Pt Level 4 (42991) Diagnoses Heterozygous familial hypercholesterolemia E78.01 Primary hypertension I10 Hypertension type: primary hypertension CPT Codes EKG - CPT: 36429-[id number], Complete ([id number])
[2024-02-16 10:46] VITALS: BP 182/83; PULSE 86; BMI 22.7
[2024-02-16 11:21] VITALS: BP 178/81; BP 184/87; PULSE 89
== END 2024-02-16 11:40 | disposition home or self-care (01) ==
PROVIDERS: PCP Nurse Practitioner Family; Visit Provider Internal Medicine Cardiovascular Disease
DX: E78.01 Familial hypercholesterolemia (principal); I10 Essential (primary) hypertension
CPT/HCPCS: 93010; 99204

== ENCOUNTER → 2024-02-16 10:43 | Outpatient (BNVA) | payer OTHER, SELFPAY | PROVIDERS: PCP Nurse Practitioner Family; Visit Provider Internal Medicine Cardiovascular Disease | DX: E78.01 Familial hypercholesterolemia (principal); I10 Essential (primary) hypertension | CPT/HCPCS: 93005 ==

== ENCOUNTER 2024-02-25 13:51 | Outpatient (REF) | payer OTHER, SELFPAY ==
--- NOTE | ~2024-02-25 | MM_ITS ---
EXAMINATION: MM SCREENING DIGITAL BREAST TOMOSYNTHESIS, BILATERAL CLINICAL INFORMATION: Screening. Asymptomatic. COMPARISON: Mammography: Comparison is made with available prior examinations. TECHNIQUE: Digital breast tomosynthesis is performed in both the craniocaudal and mediolateral oblique views along with computer-aided detection (CAD). Synthesized 2D images are generated from the tomosynthesis. FINDINGS: There are scattered areas of fibroglandular density (ACR BI-RADS breast composition Category b). There are no significant masses, abnormal calcifications, or other abnormalities. MM/MM tomosynthesis screening BI IMPRESSION: No mammographic evidence of malignancy. ASSESSMENT: BI-RADS BI-RADS 1 - Negative RECOMMENDATION: Routine annual mammography screening. 1 year F/U This examination should not preclude the clinical evaluation of a suspicious palpable abnormality. This patient's information was entered into a reminder system with a target due date for their next mammogram. Electronically signed by: Karina Vincent DO 03/24/2024 09:30 AM EDT
--- NOTE | ~2024-02-25 | MM_ITS ---
EXAMINATION: BONE DENSITOMETRY CLINICAL INDICATION: Menopause. COMPARISON: Baseline BD dated 09/22/2013. TECHNIQUE: Using a Chartio DXA System (software version: 13.1) manufactured by [employer], dual-energy x-ray absorptiometry was performed of the lumbar spine and left hip. The images are of good technical quality. Summary results are attached. FINDINGS: LEFT FEMUR, NECK: Current: BMD 0.782 g/cm2, Z-score -0.4, T-score -1.8, osteopenia. Baseline: BMD 0.939 g/cm2. LEFT FEMUR, TOTAL: Current: BMD 0.816 g/cm2, Z-score -0.3, T-score -1.5, osteopenia, 16.0% decrease from baseline (<5% change is not significant). Baseline: BMD 0.971 g/cm2. AP SPINE L1-L4: Current: BMD 1.025 g/cm2, Z-score 0.3, T-score -1.3, osteopenia, 11.8% decrease from baseline (<5% change is not significant). Baseline: BMD 1.162 g/cm2. IDENTIFIED RISK FACTORS: Menopause, secondary osteoporosis (hyperthyroidism). HISTORY OF FRACTURE: None listed. MEDICATIONS: Multivitamin, vitamin D. MM/XR DEXA axial skeleton IMPRESSION: 1. DIAGNOSIS: Osteopenia based on the lowest T-score value of -1.8 in the femoral neck applying World Health Organization criteria. 2. 10-YEAR FRACTURE RISK PREDICTION, FRAX: Major osteoporotic fracture (clinical spine, forearm, hip or shoulder) 9.1%. Hip fracture 1.2%. 3. Treatment Recommendations: NOF guidelines recommend consideration for treatment in postmenopausal women and men age 50 and older presenting with the following: -A hip or vertebral (clinical or morphometric) fracture. -T-score less than or equal to -2.5 at the femoral neck or spine after appropriate evaluation to exclude secondary causes. -Low bone mass at the hip or spine and a 10-year fracture probability by FRAX of greater than or equal to 3% for hip fracture or greater than or equal to 20% for major osteoporotic fracture based on the [place] adapted WHO algorithm. 4. Other Recommendations: All treatment decisions require clinical judgment and consideration of individual patient factors, including patient preferences, comorbidities, previous drug use, risk factors not captured in the FRAX model (e.g. frailty, falls, vitamin D deficiency, increased bone turnover, interval significant decline in bone density) and possible under or overestimation of fracture risk by FRAX. Additional medical evaluation for secondary cause of low bone mineral density may be appropriate. FUTURE SCAN RECOMMENDATION: People with diagnosed cases of osteoporosis or at high risk for fracture should have regular bone mineral density tests. For patients eligible for Medicare, routine testing is allowed once every 2 years. The testing frequency can be increased to one year for patients who have rapidly progressing disease, those who are receiving or discontinuing medical therapy to restore bone mass, or have additional risk factors. Electronically signed by: Guy Ahn MD 02/28/2024 08:40 AM EDT
== END 2024-02-25 13:52 | disposition home or self-care (01) ==
LOC: HO.MAMMO 13:51
PROVIDERS: Visit Provider Nurse Practitioner Family
DX: Z12.31 Encounter for screening mammogram for malignant neoplasm of breast (principal); Z13.820 Encounter for screening for osteoporosis; Z78.0 Asymptomatic menopausal state
CPT/HCPCS: 77063; 77067; 77080

== ENCOUNTER → 2024-02-25 14:15 | Outpatient (BNV) | payer OTHER, SELFPAY | PROVIDERS: Visit Provider Internal Medicine | DX: Z12.31 Encounter for screening mammogram for malignant neoplasm of breast (principal) | CPT/HCPCS: 77063; 77067 ==

== ENCOUNTER 2024-02-29 14:00 | Outpatient (RCR) | payer OTHER, SELFPAY | END 2024-02-29 15:10 | disposition home or self-care (01) | LOC: HO.PT 14:00 | PROVIDERS: PCP Nurse Practitioner Family; Visit Provider Registered Nurse | DX: M75.22 Bicipital tendinitis, left shoulder (principal) | CPT/HCPCS: 97014; 97033; 97035; 97110; 97112; 97140; 97161; 97530; 97535 ==

== ENCOUNTER 2024-03-10 13:02 | Outpatient (AMB) | payer OTHER, SELFPAY ==
--- NOTE | 2024-03-10 13:12 | MHC.PC.OV ---
Vital Signs 03/10/24 13:18 03/10/24 13:26 03/10/24 14:13 Height 5 ft 4 in Weight 133 lb 4 oz BMI 22.9 BP 142/72 H 144/68 H 120/58 L Blood Pressure Location Lt brachial Lt brachial Rt brachial Position Sitting Sitting Sitting Respiration 14 Pulse 113 H Pulse Source Pulse Oximeter Pulse Oximetry (%) 98 Oxygen Delivery Method Room Air Intake Visit Reasons: Sept 30 min routine f/u HTN, Cardiac consult, Mood Intake Note: Extended follow up. Had CT scan 03/03. Bone density and mammogram 02/25/24. Mammo report still pending. Business Communications Instructor Required: No Allergies No Known Allergies Allergy (Verified 03/10/24 13:13) Medication List - Last Reconciled 03/10/24 by MAURA Elizondo-BC acetaminophen (Acetaminophen Extra Strength) 500 mg PO Q6H PRN lisinopril 20 mg PO DAILY Tobacco use date assessed: 12/21/23 Dental Screening Dental Screen Date: 12/21/23 HPI HPI Comments History of Present Illness Details 63-year-old female with hyperlipidemia, bicep tedonitis, elevated lipoprotein B, graves disease, osteopenia, Here today for routine follow up of chronic conditions. Since last office visit she had her cardiology consult. This was in February of 2024. The consult note was reviewed. It was recommended that she start a statin, which she declined. A calcium channel scoring was done 03/03/2024 which was negative. An echocardiogram was ordered to rule out hypertensive heart disease. Echocardiogram at this time is pending. Cardiology requested annual follow up. Since this time she has been using citrus berg[place] to treat her cholesterol. She has been on it for about 3 weeks. She continues to decline statin. Reviewed the labs done at the last office visit with her today. She continues to have generalized joint aches and pains. Wors in her upper body. Reports that she feels stiff when she wakes up however when she goes about her day the pain often gets better. She is active, walks a lot but has not yet returned to the gym. Left shoulder is improving with physical therapy, however has not returned to baseline. Still has limited range of motion. In regards to her mood, generalized anxiety is better since her son moved out. She does not feel like she needs any additional support at this time. DEXA complete and shows osteopenia. HTN well controlled on current meds. Monitors at home and at goal. Admits white coat HTN. Repeat BP today looks great. Exam: awake alert NAD RRR LS CTAB No edema BLE Limited ROM all directions L shoulder Mood and affect approp Plan: Check labs, repeat lymes panel given the findings of initial panel. Discussed referral to Rheum but will hold off at this time. Ok to cont citrus bergamont for cholesterol. Reviewed statin use. Recommend daily Ca+D supplement. Is taking add'l vitamin D and wonders if she still needs this, will provide this info once labs resulted. Try accupuncture or chiropractic medicine for joint complaints. Cont lisinopril RTO in 4-6 months, fasting labs done 1 week before, sooner PRN Total time spent caring for the patient today was 45 minutes. This includes time spent before the visit reviewing the chart, time spent during the visit, and time spent after the visit on documentation This note is constructed using voice recognition software. While every effort has been made to ensure accuracy in passenger brakeman, still errors may have been included Sometimes, these errors may affect the content or meaning of the given sentence . [facility] Medical History Biceps tendonitis on right Family History Mother Breast cancer Father CAD (coronary artery disease) Brother CAD (coronary artery disease) Hyperlipemia Social History Housing: House Alcohol intake: current Alcohol intake frequency: holidays/special occasions only Patient Tobacco Use Status: Never used Tobacco e-Cigarette/Vaping Use: Never Used Second Hand Smoke Exposure: No Current occupational status: employed Current occupation: Physical therapy/ right hand dominant Cognitive needs: No Hearing needs: No Vision needs: Yes Questionnaire PHQ-9 Over the last 2 weeks, how often have you been bothered by any of the following problems? 1. Little interest or pleasure in doing things: not at all 2. Feeling down, depressed, or hopeless: not at all 3. Trouble falling or staying asleep, or sleeping too much: not at all 4. Feeling tired or having little energy: not at all 5. Poor appetite or overeating: not at all 6. Feeling bad about yourself - or that you are a failure or have let yourself or your family down: not at all 7. Trouble concentrating on things, such as reading the newspaper or watching television: not at all 8. Moving or speaking so slowly that other people could have noticed. Or the opposite - being so fidgety or restless that you have been moving around a lot more than usual: not at all 9. Thoughts that you would be better off or of hurting yourself in some way: not at all Total score: 0 Depression Screening Interpretation: Negative Depression Screening Done: Yes 72017 - PHQ-9 Billing: Yes Source: Developed by Drs. Reed Harrison, Crispin Holguin and colleagues, with an educational rick from [employer]. Thrive Questionnaire Date Thrive assessed: 12/21/23 TANNER-7 AMB Questionnaire TANNER-7 Date TANNER - 7 assessed: 12/21/23 Feeling nervous, anxious, or on edge: 1 = Several days Not being able to stop or control worryin = Several days Worrying too much about different things: 1 = Several days Trouble relaxin = Several days Being so restless that it is hard to sit still: 1 = Several days Becoming easily annoyed or irritable: 1 = Several days Feeling afraid as if something awful might happen: 0 = Not at all Total TANNER-7 score (0-4 normal; 5-9 mild; 10-14 moderate; 15-21 severe): 6 Source: Developed by Drs. Reed Harrison, Crispin Holguin and colleagues, with an educational rick from [employer]. TANNER-7 Assessment Billing TANNER-7 Assessment Tool: TANNER-7 Assessment 46278 Physical exam (Primary Care) Vital Signs: Last Vital Signs Pulse 113 H 03/10/24 13:18 Resp 14 03/10/24 13:18 BP 120/58 L 03/10/24 14:13 Pulse Ox 98 03/10/24 13:18 Oxygen Delivery Method Room Air 03/10/24 13:18 BMI result Body Mass Index 22.9 Tobacco/Smoking Status: Tobacco use Status Tobacco use date assessed 12/21/23 03/10/24 13:14 Patient Tobacco Use Status Never used Tobacco 03/10/24 13:14 e-Cigarette/Vaping Use Never Used 03/10/24 13:14 PHQ-9: PHQ-9 Score PHQ-9: Total score 0 03/14/24 08:13 Depression Screening Interpretation: Negative Thrive Assessment: Date of Thrive Assessment Date Thrive assessed 12/21/23 03/10/24 13:14 Assessment and Plan Assessment & Plan (1) Myalgia: Code(s): M79.10 - Myalgia, unspecified site (2) HTN (hypertension): Comment: well controlled on lisinopril 20mg , cont Code(s): I10 - Essential (primary) hypertension Qualifiers: Hypertension type: primary hypertension Qualified Code(s): I10 - Essential (primary) hypertension (3) Heterozygous familial hypercholesterolemia: Code(s): E78.01 - Familial hypercholesterolemia (4) Osteopenia: Code(s): M85.80 - Other specified disorders of bone density and structure, unspecified site Orders: Orders TSH reflex Free T4 03/10/24 E78.01 - Familial hypercholesterolemia, I10 - Essential (primary) hypertension Lyme IgG/IgM w/reflex to WB 03/10/24 M79.10 - Myalgia, unspecified site Comprehensive [place]. Panel Fast 03/10/24 E78.01 - Familial hypercholesterolemia, I10 - Essential (primary) hypertension Lipid Panel 03/10/24 E78.01 - Familial hypercholesterolemia, I10 - Essential (primary) hypertension Vitamin D 25-OH Total 03/10/24 M85.80 - Other specified disorders of bone density and structure, unspecified site Lipid Panel 07/05/24 E78.01 - Familial hypercholesterolemia, I10 - Essential (primary) hypertension, M85.80 - Other specified disorders of bone density and structure, unspecified site TSH reflex Free T4 07/05/24 E78.01 - Familial hypercholesterolemia, I10 - Essential (primary) hypertension, M85.80 - Other specified disorders of bone density and structure, unspecified site Vitamin D 25-OH Total 07/05/24 E78.01 - Familial hypercholesterolemia, I10 - Essential (primary) hypertension, M85.80 - Other specified disorders of bone density and structure, unspecified site Comprehensive [place]. Panel Fast 07/05/24 I10 - Essential (primary) hypertension Hemoglobin A1c 07/05/24 I10 - Essential (primary) hypertension Medications: Refilled lisinopril 20 mg PO DAILY 90 tabs 1RF Patient Instructions: Consider accupuncture: delroy marks [phone] [place] [address] Coding Level of Care Code Est Pt Level 5 (01343) Complex EM visit Add On G2211 Diagnoses Myalgia M79.10 Primary hypertension I10 Hypertension type: primary hypertension Heterozygous familial hypercholesterolemia E78.01 Osteopenia M85.80 Additional Codes TANNER-7 Assessment Billing - TANNER-7 Assessment Tool: TANNER-7 Assessment [id number] ([id number])
[2024-03-10 13:18] VITALS: BP 142/72; PULSE 113; RESP 14; O2SAT 98; BMI 22.9
[2024-03-10 13:26] VITALS: BP 144/68
[2024-03-10 14:13] VITALS: BP 120/58
== END 2024-03-10 15:37 | disposition home or self-care (01) ==
PROVIDERS: PCP Nurse Practitioner Family; Visit Provider Nurse Practitioner Family
DX: M79.10 Myalgia, unspecified site (principal); I10 Essential (primary) hypertension; E78.01 Familial hypercholesterolemia; M85.80 Other specified disorders of bone density and structure, unspecified site
CPT/HCPCS: 99215

== ENCOUNTER → 2024-03-17 10:54 | Outpatient (REF) | payer OTHER, SELFPAY ==
--- NOTE | 2024-03-17 10:58 | CA_ITS ---
Transthoracic Echocardiogram Patient (Last, First, Middle): Selena Prince, Gender: Female Date of : 1960 Age: 63 Procedure Date: 03/17/2024 Procedure Type: Transthoracic Echocardiogram Location: OP Height: 165.1 cm Weight: 58.97 kg BSA: 1.65 m2 Heart Rate: 64 bpm BP: 160 / 80 mmHg Brand Mgr: TO Referring MD: Sanchez Gray MD Symptoms: I10 - Essential (primary) hypertension Study Quality: Adequate ECG Rhythm: Sinus Conclusions: - Normal left ventricular size, thickness, systolic function, and wall motion. The visually estimated ejection fraction is between 60-65%. Diastolic function is normal for age. - Normal right ventricular cavity size and systolic function. - Both atria are normal in size. Findings Left Ventricle Normal left ventricular size, thickness, systolic function, and wall motion. The visually estimated ejection fraction is between 60-65%. Diastolic function is normal for age. Right Ventricle Normal right ventricular cavity size and systolic function. Atria Both atria are normal in size. Aortic Valve Normal aortic valve structure and function. There is no aortic valve stenosis. There is no aortic valve regurgitation. Mitral Valve Normal mitral valve structure and function. There is no mitral valve regurgitation. There is no mitral valve stenosis. Pulmonic Valve The pulmonic valve is normal. There is no pulmonic valve regurgitation. Tricuspid Valve Normal tricuspid valve structure. There is no tricuspid valve regurgitation. Great Vessels All visible segments of the aorta are normal in size. The visualized portions of the pulmonary artery and branches are normal. Venous The inferior vena cava is normal in size and collapses greater than 50% with inspiration. Pericardium/Pleural There is no evidence of pericardial effusion. Prior Study Comparison No prior study available for comparison. Measurements 2D Linear Measurements IVSd: 0.75 0.6-0.9/0.6-1.0 cm LVIDd: 4.55 3.9-5.3/4.2-5.9 cm LVIDd Index: 2.76 2.4-3.2/2.2-3.1 cm/m2 LVIDs: 3.10 2.0-3.6 cm LVPWd: 0.62 0.7-1.1 cm LA Diam: 2.80 2.7-3.8/3.0-4.0 cm LAIDs Index: 1.70 1.5-2.3 cm/m2 LV Mass: 117.04 67-162/88-224 g LV Mass Index: 70.94 43-95/49-115 g/m2 LVOT Diam: 2.00 3.0+(-)1.3 cm 2D Systolic Function EF 4C: 68.10 >55% EF 2C: 62.50 >55% EF BiP: 65.40 >55% Mitral Valve MV Pk E: 0.69 MV PK A: 0.65 MV Decel Time: 217.00 E/A: 1.10 E'Lateral: 9.46 E'Medial: 7.83 E/E' Med: 8.90 E/E' Lat: 7.30 PHT: 63.00 MVA PHT: 3.49 Decel [place]: 3.20 Aortic Valve AoV Pk Melvin: 1.45 AoV Mn Melvin: 0.96 AoV VTI: 0.32 AoV Pk Grad: 8.00 Aov Mn Grad: 4.00 KELECHI Cont.VTI: 2.25 LVOT LVOT Pk Melvin: 0.94 LVOT Mn Melvin: 0.57 LVOT VTI: 0.23 LVOT Pk Grad: 4.00 LVOT Mn Grad: 2.00 LVOT Diam: 2.00 LVOT Area: 3.14 Diastolic Function MV Pk E: 0.69 MV Pk A: 0.65 E/A: 1.10 E'Medial: 7.83 E/E' Med: 8.90 E' Laterial: 9.46 E/E' Lat: 7.30 Right Ventricle TAPSE (mm): 25.40 TVS' Melvin: 15.10 Tricuspid Valve TR Pk Melvin: 2.01 TR Pk Grad: 16.00 RA Press: 3.00 RVSP: 19.00 Great Vessels Aorta Sinus of Valsalva: 2.80 2.0-3.5 cm Ao Asc: 3.00 2.1-3.4 cm Updated in Other Vendor System with Status of Final Andrey Reeder MD electronically signed on 03/19/2024 9:01:21 PM with status of Final
== END ==
LOC: HO.CARD 10:54
PROVIDERS: PCP Nurse Practitioner Family; Visit Provider Internal Medicine Cardiovascular Disease
DX: I10 Essential (primary) hypertension (principal)
CPT/HCPCS: 93306

== ENCOUNTER → 2024-03-17 10:58 | Outpatient (BNV) | payer OTHER, SELFPAY | PROVIDERS: PCP Nurse Practitioner Family; Visit Provider Internal Medicine Cardiovascular Disease | DX: I10 Essential (primary) hypertension (principal) | CPT/HCPCS: 93306 ==

== ENCOUNTER 2024-03-27 07:08 | Outpatient (REF) | payer OTHER, SELFPAY ==
[2024-03-27 08:33] LABS: Alanine Aminotransferase 14 U/L (0-31); Albumin Level 4.4 g/dL (3.5-5.0); Alkaline Phosphatase 75 U/L (39-117); Anion Gap 12 (12-20); Aspartate Amino Transferase 19 U/L (5-31); Bilirubin Total 0.4 mg/dL (0.0-1.0); Blood Urea Nitrogen 16 mg/dL (9-16); Calcium 9.9 mg/dL (8.4-10.2); Carbon Dioxide 30 mmol/L (22-29); Chloride 104 mmol/L (96-108); Cholesterol 237 mg/dL (<200); Estimated Glomerular Filt Rate > 60; Glucose Fasting 95 mg/dL (60-99); HDL Cholesterol 78 mg/dL (>40); LDL Cholesterol Calculated 147 mg/dL (<100); Potassium 4.3 mmol/L (3.3-5.1); Sodium 142 mmol/L (135-145); TSH reflex Free T4 1.18 uIU/mL (0.32-4.0); Total Protein 7.2 g/dL (6.5-8.0); Triglycerides 60 mg/dL (<150); Vitamin D 25-OH Total 39.9 ng/mL (>30)
[2024-03-28 17:43] LABS: Lyme Blot 2.38 index
[2024-03-29 15:06] LABS: Lyme Abs Screen POSITIVE
[2024-03-30 20:08] LABS: 18 KD (IgG) Band NON-REACTIVE; 23 KD (IgG) Band NON-REACTIVE; 23 KD (IgM) Band NON-REACTIVE; 28 KD (IgG) Band NON-REACTIVE; 30 KD (IgG) Band NON-REACTIVE; 39 KD (IgM) Band NON-REACTIVE; 39KD (IgG) Band NON-REACTIVE; 41 KD (IgM) Band NON-REACTIVE; 41KD (IgG) Band NON-REACTIVE; 45 KD (IgG) Band NON-REACTIVE; 58 KD (IgG) Band NON-REACTIVE; 66 KD (IgG) Band NON-REACTIVE; 93 KD (IgG) Band NON-REACTIVE; Lyme IgG Blot Interp NEGATIVE (NEGATIVE); Lyme IgM Blot Interp NEGATIVE (NEGATIVE)
== END 2024-03-27 07:09 | disposition home or self-care (01) ==
LOC: HO.LAB 07:08
PROVIDERS: PCP Nurse Practitioner Family; Visit Provider Nurse Practitioner Family
DX: I10 Essential (primary) hypertension (principal); E78.01 Familial hypercholesterolemia; M79.10 Myalgia, unspecified site; M85.80 Other specified disorders of bone density and structure, unspecified site
CPT/HCPCS: 36415; 80053; 80061; 82306; 84443; 86617; 86618

== ENCOUNTER 2024-05-18 13:45 | Outpatient (AMB) | payer OTHER, SELFPAY ==
[2024-05-18 13:50] VITALS: BP 142/74; PULSE 85; RESP 16; TEMP 37.1; O2SAT 100
--- NOTE | 2024-05-18 13:50 | MHC.PC.OV ---
Vital Signs 05/18/24 13:50 Weight 133 lb 8 oz BP 142/74 H Blood Pressure Location Lt brachial Position Sitting Respiration 16 Pulse 85 Pulse Source Pulse Oximeter Temp 98.8 F Temp Source Oral Pulse Oximetry (%) 100 Oxygen Delivery Method Room Air Intake Visit Reasons: right ear ache Intake Note: patient here c/o right ear ache Order Make Up Clerk Required: No Is last menstrual period known: No Post menopausal: No Patient : No Allergies No Known Allergies Allergy (Verified 05/18/24 13:55) Medication List - Last Reconciled 05/18/24 by Sadaf Laboy, ATG JAVA DEVELOPER- acetaminophen (Acetaminophen Extra Strength) 500 mg PO Q6H PRN lisinopril 20 mg PO DAILY Tobacco use date assessed: 05/18/24 Dental Screening Dental Screen Date: 05/18/24 Did you have a dental visit in the last 12 months?: Yes Did you have a dental problem in the last 6 months where you did not have access to dental care?: No Was dental information given to patient?: Patient has dentist HPI HPI Comments History of Present Illness Details 63-year-old female with hyperlipidemia, bicep tedonitis, elevated lipoprotein B, graves disease, osteopenia Here today for c/o R ear pain A few weeks ago, hearing muffled in R ear Then got better Then a few days later, started to feel nasal congestion mild cold sx , no fever then a few days after that, when applyin pressure to the right ear, it hurt Denies drainage. Admits wearing ear plugs. Exam Awake alert NAD Cerumen impaction bilat worse on R Attempt at lavage bilaterally was made however patient could not tolerate. Plan Plan start Debrox and return to office in about 1 week for lavage bilaterally PFSH Medical History Biceps tendonitis on right Family History Mother Breast cancer Father CAD (coronary artery disease) Brother CAD (coronary artery disease) Hyperlipemia Social History Housing: House Alcohol intake: current Alcohol intake frequency: holidays/special occasions only Patient Tobacco Use Status: Never used Tobacco e-Cigarette/Vaping Use: Never Used Second Hand Smoke Exposure: No Current occupational status: employed Current occupation: Physical therapy/ right hand dominant Cognitive needs: No Hearing needs: No Vision needs: Yes Questionnaire PHQ-9 Over the last 2 weeks, how often have you been bothered by any of the following problems? 1. Little interest or pleasure in doing things: not at all Source: Developed by Drs. Reed Harrison, Rosita Patton, Crispin Michele and colleagues, with an educational rick from [employer]. Thrive Questionnaire Date Thrive assessed: 12/21/23 I am a: Patient What is your living situation today?: I choose not to answer this question Within the past 12 months, did the food you bought not last and you didn't have the money to get more?: I choose not to answer this question Within the past 12 months, did you worry whether your food would run out before you got money to buy more?: I choose not to answer this question Do you have trouble paying for medicines?: I choose not to answer this question Do you have trouble getting transportation to medical appointments?: I choose not to answer this question Do you have trouble paying your heating and electricity bill?: I choose not to answer this question Do you have trouble taking care of your child, family member or friend?: I choose not to answer this question Do you have trouble with day-to-day activities such as bathing, preparing meals, shopping, managing finances, etc.?: I choose not to answer this question Are you currently unemployed and looking for a job?: I choose not to answer this question Are you interested in more education?: I choose not to answer this question Please select the resources that you would like help with: None Currently or been in a relationship where the following occur: I choose not to answer THRIVE Score: 0 AUDIT C Alcohol Use Questionnaire (AUDIT-C) 1. How often do you have a drink containing alcohol?: Never Total Score: 0 TANNER-7 AMB Questionnaire TANNER-7 Date TANNER - 7 assessed: 12/21/23 Feeling nervous, anxious, or on edge: 0 = Not at all Not being able to stop or control worryin = Not at all Worrying too much about different things: 0 = Not at all Trouble relaxin = Not at all Being so restless that it is hard to sit still: 0 = Not at all Becoming easily annoyed or irritable: 0 = Not at all Feeling afraid as if something awful might happen: 0 = Not at all Total TANNER-7 score (0-4 normal; 5-9 mild; 10-14 moderate; 15-21 severe): 0 Source: Developed by Drs. Reed Harrison, Rosita Patton, Crispin Michele and colleagues, with an educational rick from [employer]. Physical exam (Primary Care) Vital Signs: Last Vital Signs Temp 98.8 F 05/18/24 13:50 Pulse 85 05/18/24 13:50 Resp 16 05/18/24 13:50 BP 142/74 H 05/18/24 13:50 Pulse Ox 100 05/18/24 13:50 Oxygen Delivery Method Room Air 05/18/24 13:50 Tobacco/Smoking Status: Tobacco use Status Tobacco use date assessed 05/18/24 05/18/24 13:55 Patient Tobacco Use Status Never used Tobacco 05/18/24 13:55 e-Cigarette/Vaping Use Never Used 05/18/24 13:55 Thrive Assessment: Date of Thrive Assessment Date Thrive assessed 12/21/23 05/18/24 13:55 Currently or been in a relationship where the following occur: I choose not to answer Office Procedures Cerumen Removal From which ear canal was the cerumen removed: bilateral Removal: irrigation 70425-[id number] Irrigation/Lavage Coding Level of Care Code Est Pt Level 3 (05635) Complex EM visit Add On G2211 Diagnoses Impacted cerumen, bilateral H61.23 CPT Codes Office Procedure - CPT: 17472-Iwp Irrigation/Lavage ([id number]) Assessment & Plan Assessment & Plan (1) Impacted cerumen, bilateral: Code(s): H61.23 - Impacted cerumen, bilateral Plan: . Medications: New carbamide peroxide 6.5% (Debrox) 5 drps otic (ears) DAILY 5 days 15 mL 0RF BILAT EARS Patient Instructions: Earwax (Cerumen Impaction) Created in Ears Earwax, called cerumen, is produced by special wax-forming glands located in the skin of the outer one-third of the ear canal. It is normal to have cerumen in ear canal as this waxy substance serves as a self-cleaning agent with protective, lubricating, and antibacterial properties. The absence of earwax may result in dry, itchy ears. Self-cleaning means there is a slow and student life vice president movement of earwax and skin cells from the eardrum to the ear opening. Old earwax is constantly being transported, assisted by chewing and jaw motion, from the ear canal to the ear opening where, most of the time, it dries, flakes, and falls out. What Are the Symptoms of an Earwax Blockage? Symptoms of an earwax problem may include: Earache Feeling of plugged hearing or fullness in the ear Partial hearing loss that gets worse Tinnitus, ringing, or noises in the ear Itching, odor, or discharge Coughing Pain Infection What Causes Earwax Blockage? When a patient has wax blockage against the eardrum, it is often because they have been probing the ear with such things as cotton-tipped swabs, taylor pins, or twisted napkin corners. These objects only push the wax in deeper in the ear canal. Why Is It Dangerous to Use Swabs to Remove Earwax? Wax blockage is one of the most common causes of hearing loss. This is often caused by attempts to clean the ear with cotton swabs. Most cleaning attempts merely push the wax deeper into the ear canal which is shaped like an hourglass, causing a blockage at the narrowing part of the ear canal. In addition, accidental trauma to the ear drum or ear bones can occur if the swab is pushed too deep. Good intentions to keep ears clean may lessen the ability to hear. The ear is a delicate and complicated body part, including the skin of the ear canal and the eardrum. Therefore, special care should be given to this part of the body. Discontinue the habit of inserting cotton-tipped swabs or other objects into the ear canals. What Are the Treatment Options? Cleaning a working ear can be done by washing it with a soft cloth, but do not insert anything into the ear. Ideally, the ear canals should never have to be cleaned. However, that isn?t always the case. The ears should be cleaned when enough earwax gathers to cause symptoms or to prevent a needed assessment of the ear by your doctor. This condition is call cerumen impaction. Most cases of ear wax blockage respond to home treatments used to soften wax. Patients can try placing a few drops of mineral oil, baby oil, glycerin, or commercial drops in the ear. Detergent drops such as hydrogen peroxide or carbamide peroxide (available in most pharmacies) may also aid in the removal of wax. Irrigation or ear syringing is commonly used for cleaning and can be performed by a physician or at home using a commercially available irrigation kit. Common solutions used for syringing include water and saline, which should be warmed to body temperature to prevent dizziness. Ear syringing is most effective when water, saline, or wax dissolving drops are put in the ear canal 15 to 30 minutes before treatment. Caution is advised to avoid having your ears irrigated if you have diabetes, a hole in the eardrum (perforation), tube in the eardrum, skin problems such as eczema in the ear canal or a weakened immune system. >> If you have been prescribed Debrox, use as directed for 5 nights and return to the office on Day 6 for an ear lavage to remove the wax<< Manual removal of earwax is also effective. This is most often performed by an ENT (ear, nose, and throat) specialist, or global marketing intern, using suction or special miniature instruments, and a microscope to magnify the ear canal. Manual removal is preferred if your ear canal is narrow, the eardrum has a perforation or tube, other methods have failed, or if you have skin problems affecting the ear canal, diabetes or a weakened immune system. When Should I Talk to a Doctor? If home treatments do not help, or if wax has accumulated so much that it blocks your ear canal and your ability to hear, an ENT specialist may prescribe eardrops designed to soften wax, or they may wash or vacuum it out. Your ENT specialist may also need to remove the wax under microscopic visualization. If there is a possibility of a perforation in the eardrum, consult a physician prior to trying any [id number] remedies. Putting eardrops or other products in the ear with the presence of an eardrum perforation may cause pain or an infection. Washing water through such a hole could start an infection. If you are prone to repeated wax impaction or use hearing aids, consider seeing your doctor every six to 12 months for a checkup and routine preventive cleaning. What Questions Should I Ask My Doctor? What are the benefits and risks/side effects of different cerumen removal management options: earwax softening products, water irrigation vs. physical removal? Does cerumen accumulation vary with age, gender, familial or dietary intake? How do I manage swimming underwater with cerumen impaction? Should anything be done to the ears to prevent a buildup of earwax? How often should cerumen be removed from the ears? Are ear candles a safe option for removing earwax?
== END 2024-05-18 14:11 | disposition home or self-care (01) ==
PROVIDERS: PCP Nurse Practitioner Family; Visit Provider Nurse Practitioner Family
DX: H61.23 Impacted cerumen, bilateral (principal)

== ENCOUNTER → 2024-05-18 13:45 | Outpatient (BNVA) | payer OTHER, SELFPAY | PROVIDERS: PCP Nurse Practitioner Family; Visit Provider Nurse Practitioner Family | DX: H61.23 Impacted cerumen, bilateral (principal) | CPT/HCPCS: 69209 ==

== ENCOUNTER 2024-05-23 13:45 | Outpatient (AMB) | payer OTHER, SELFPAY ==
--- NOTE | 2024-05-23 13:48 | A.OFFPC_ITS ---
Vital Signs 05/23/24 13:54 Height 5 ft 4 in Weight 132 lb 8 oz BMI 22.7 BP 163/72 H Blood Pressure Location Lt brachial Position Sitting Respiration 14 Pulse 80 Pulse Source Pulse Oximeter Pulse Oximetry (%) 98 Oxygen Delivery Method Room Air Intake Visit Reasons: ear lavage Intake Note: patient here to ear lavage both ears Detective Sergeant Required: No Allergies No Known Allergies Allergy (Verified 05/23/24 15:03) Medication List - Last Reconciled 05/23/24 by HARLAN Elizondo acetaminophen (Acetaminophen Extra Strength) 500 mg PO Q6H PRN carbamide peroxide 6.5% (Debrox) 5 drps otic (ears) DAILY 5 days lisinopril 20 mg PO DAILY Tobacco use date assessed: 05/18/24 Dental Screening Dental Screen Date: 05/18/24 HPI HPI Comments History of Present Illness Details HERE FOR BILAT EAR LAVAGE PFSH Medical History Biceps tendonitis on right Family History Mother Breast cancer Father CAD (coronary artery disease) Brother CAD (coronary artery disease) Hyperlipemia Social History Housing: House Alcohol intake: current Alcohol intake frequency: holidays/special occasions only Patient Tobacco Use Status: Never used Tobacco e-Cigarette/Vaping Use: Never Used Second Hand Smoke Exposure: No Current occupational status: employed Current occupation: Physical therapy/ right hand dominant Cognitive needs: No Hearing needs: No Vision needs: Yes Questionnaire PHQ-9 Over the last 2 weeks, how often have you been bothered by any of the following problems? 2. Feeling down, depressed, or hopeless: not at all 6. Feeling bad about yourself - or that you are a failure or have let yourself or your family down: not at all 7. Trouble concentrating on things, such as reading the newspaper or watching television: not at all 8. Moving or speaking so slowly that other people could have noticed. Or the opposite - being so fidgety or restless that you have been moving around a lot more than usual: not at all 9. Thoughts that you would be better off or of hurting yourself in some way: not at all Source: Developed by Drs. Reed Harrison, Rosita Patton, Crispin Michele and colleagues, with an educational rick from [employer]. Thrive Questionnaire Date Thrive assessed: 05/18/24 I am a: Patient What is your living situation today?: I choose not to answer this question Within the past 12 months, did the food you bought not last and you didn't have the money to get more?: I choose not to answer this question Within the past 12 months, did you worry whether your food would run out before you got money to buy more?: I choose not to answer this question Do you have trouble paying for medicines?: I choose not to answer this question Do you have trouble getting transportation to medical appointments?: I choose not to answer this question Do you have trouble paying your heating and electricity bill?: I choose not to answer this question Do you have trouble taking care of your child, family member or friend?: I choose not to answer this question Do you have trouble with day-to-day activities such as bathing, preparing meals, shopping, managing finances, etc.?: I choose not to answer this question Are you currently unemployed and looking for a job?: I choose not to answer this question Are you interested in more education?: I choose not to answer this question Please select the resources that you would like help with: None Currently or been in a relationship where the following occur: I choose not to answer THRIVE Score: 0 TANNER-7 AMB Questionnaire TANNER-7 Date TANNER - 7 assessed: 12/21/23 Source: Developed by Drs. Reed Harrison, Rosita Patton, Crispin Michele and colleagues, with an educational rick from [employer]. Physical exam (Primary Care) Vital Signs: Last Vital Signs Pulse 80 05/23/24 13:54 Resp 14 05/23/24 13:54 BP 163/72 H 05/23/24 13:54 Pulse Ox 98 05/23/24 13:54 Oxygen Delivery Method Room Air 05/23/24 13:54 BMI result Body Mass Index 22.7 Tobacco/Smoking Status: Tobacco use Status Tobacco use date assessed 05/18/24 05/23/24 13:49 Patient Tobacco Use Status Never used Tobacco 05/23/24 13:49 e-Cigarette/Vaping Use Never Used 05/23/24 13:49 Thrive Assessment: Date of Thrive Assessment Date Thrive assessed 05/18/24 05/23/24 13:49 Currently or been in a relationship where the following occur: I choose not to answer Office Procedures Cerumen Removal Details: MOD AMT OF CERUMEN REMOVED BILAT, PT DID C/O SHORT LIVED DIZZINESS THAT IMPROVED. SHE C/O PAIN IN EXTERNAL EAR. EAC CONT TO HAVE OBSTRUCTIVE WAX ALBEIT W/ IMPROVEMENT BILAT PLAN 5 MORE DAYS OF DEBROX, RTO FOR BILAT LAVAGE From which ear canal was the cerumen removed: bilateral Removal: irrigation [id number] Irrigation/Lavage Coding Level of Care Code Procedure Only Diagnoses Impacted cerumen, bilateral H61.23 CPT Codes Office Procedure - CPT: 45829-Xlc Irrigation/Lavage ([id number]) Assessment & Plan Assessment & Plan (1) Impacted cerumen, bilateral: Code(s): H61.23 - Impacted cerumen, bilateral Plan . Orders: Orders AMB Cerumen Removal Today H61.23 - Impacted cerumen, bilateral Medications: Refilled carbamide peroxide 6.5% (Debrox) 5 drps otic (ears) DAILY 5 days 15 mL 0RF BILAT EARS
[2024-05-23 13:54] VITALS: BP 163/72; PULSE 80; RESP 14; O2SAT 98; BMI 22.7
== END 2024-05-23 14:08 | disposition home or self-care (01) ==
PROVIDERS: PCP Nurse Practitioner Family; Visit Provider Nurse Practitioner Family
DX: H61.23 Impacted cerumen, bilateral (principal)

== ENCOUNTER → 2024-05-23 13:45 | Outpatient (BNVA) | payer OTHER, SELFPAY | PROVIDERS: PCP Nurse Practitioner Family; Visit Provider Nurse Practitioner Family | DX: H61.23 Impacted cerumen, bilateral (principal) | CPT/HCPCS: 69209 ==

== ENCOUNTER 2024-05-29 12:48 | Outpatient (AMB) | payer OTHER, SELFPAY ==
--- NOTE | 2024-05-29 12:50 | A.OFFPC_ITS ---
Vital Signs 05/29/24 12:58 Height 5 ft 2 in Weight 133 lb BMI 24.3 BP 128/72 Blood Pressure Location Lt brachial Position Sitting Respiration 13 Pulse 71 Pulse Source Pulse Oximeter Pulse Oximetry (%) 99 Oxygen Delivery Method Room Air Intake Visit Reasons: wednesday bilat ear lavage Intake Note: patient here for both ear lavage, and also complaining of headache and nasal congestion. 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 Successful. She does report new nasal congestion and right ear mucus accumulation. The patient reported a history of temporary right cheek/facial pain and temporal pressure, bilat, primarily right-sided, with associated muffling of sound, which began over the past weekend. The patient experienced difficulty with sound resolution and described crackling and popping sensations in her sinuses and ears, notably when swallowing. There was no significant past medical history of sinus infections, and the patient had not taken antibiotics for 30 years. The right ear was identified as being notably more affected with mucus buildup than the left. The patient also described a postnasal drip as a chronic condition but reported no acute ear infections. Physical Exam General: Awake, alert. No apparent distress Eyes: Sclera and conjunctiva clear bilaterally Nose: Nares patent, turbinates pale and edematous no sinus tenderness with palpation bilaterally Ears: Tympanic membranes intact, congestion bilat R>L, EAC clear s/p lavage Throat: Moist mucosa membrane, pharynx within normal limits Plan - For sinus congestion: I prescribed Flu ticasone nasal spray Flonase), one spray per nostril in the morning and at night. This is to be continued until symptoms improve. - For mucus accumulation in the ear: As a precaution, I prescribed Augmentin, one tablet twice daily for seven days, to be taken with food, if symptoms worsen or during the holidays. Patient was informed and verbally consented to the use of an ambient scribe for clinic note documentation during this visit. Discussion Notes During the visit, I explained to the patient that her symptoms of sinus congestion and ear mucus are likely related to a cold. I discussed commencing an antibiotic, Augmentin, only if her symptoms worsen or if she feels it necessary given the upcoming holiday season. I emphasized the importance of taking the an tibiotic with food. I talked her through the use of Fluticasone nasal spray as a steroid to potentially alleviate her sinus congestion, noting that it would not give immediate relief and may induce additional drainage. The potential for insurance to not cover the nasal steroid was also discussed, with advice on how to purchase it over the counter if needed. I advised that if symptoms such as fever develop or if her condition significantly worsens, she should consider starting the antibiotic treatment. I emphasized maintaining good symptomatic control with the Fluticasone nasal spray and revisiting if symptoms do not improve. Patient Instructions - Use Fluticasone nasal spray in each no stril once in the morning and once at night. - Consider starting Augmentin if symptom s worsen, especially around the holiday period. - Seek medical attention if symptoms wor sen or new symptoms, such as fever, develop. Total time spent caring for the patient today was 30 minutes. This includes time spent before the visit reviewing the chart, time spent during the visit, and time spent after the visit on documentation [facility] Medical History Biceps tendonitis on right Family History Mother Breast cancer Father CAD (coronary artery disease) Brother CAD (coronary artery disease) Hyperlipemia Social History Housing: House Alcohol intake: current Alcohol intake frequency: holidays/special occasions only Patient Tobacco Use Status: Never used Tobacco e-Cigarette/Vaping Use: Never Used Second Hand Smoke Exposure: No Current occupational status: employed Current occupation: Physical therapy/ right hand dominant Cognitive needs: No Hearing needs: No Vision needs: Yes Questionnaire PHQ-9 Over the last 2 weeks, how often have you been bothered by any of the following problems? 57161 - PHQ-9 Billing: Patient declined-do not bill Source: Developed by Ray Soliset B.W. Abdi, Crispin Michele and colleagues, with an educational rick from [employer]. Thrive Questionnaire Date Thrive assessed: 05/29/24 I am a: Patient What is your living situation today?: I choose not to answer this question Within the past 12 months, did the food you bought not last and you didn't have the money to get more?: I choose not to answer this question Within the past 12 months, did you worry whether your food would run out before you got money to buy more?: I choose not to answer this question Do you have trouble paying for medicines?: I choose not to answer this question Do you have trouble getting transportation to medical appointments?: I choose not to answer this question Do you have trouble paying your heating and electricity bill?: I choose not to answer this question Do you have trouble taking care of your child, family member or friend?: I choose not to answer this question Do you have trouble with day-to-day activities such as bathing, preparing meals, shopping, managing finances, etc.?: I choose not to answer this question Are you currently unemployed and looking for a job?: I choose not to answer this question Are you interested in more education?: I choose not to answer this question Please select the resources that you would like help with: None Currently or been in a relationship where the following occur: I choose not to answer THRIVE Score: 0 TANNER-7 AMB Questionnaire TANNER-7 Date TANNER - 7 assessed: 05/29/24 Source: Developed by Drs. Reed Harrison, Rosita Patton, Crispin Michele and colleagues, with an educational rick from [employer]. Physical exam (Primary Care) Vital Signs: Last Vital Signs Pulse 71 05/29/24 12:58 Resp 13 05/29/24 12:58 BP 128/72 05/29/24 12:58 Pulse Ox 99 05/29/24 12:58 Oxygen Delivery Method Room Air 05/29/24 12:58 BMI result Body Mass Index 24.3 Tobacco/Smoking Status: Tobacco use Status Tobacco use date assessed 05/18/24 05/29/24 12:52 Patient Tobacco Use Status Never used Tobacco 05/29/24 12:52 e-Cigarette/Vaping Use Never Used 11/25/24 12:52 Thrive Assessment: Date of Thrive Assessment Date Thrive assessed 05/29/24 05/29/24 12:52 Currently or been in a relationship where the following occur: I choose not to answer Office Procedures Cerumen Removal From which ear canal was the cerumen removed: bilateral Removal: irrigation Notes: patient tolerated procedure well, no complications and ear canal clear 62118-Qun Irrigation/Lavage Coding Level of Care Code Est Pt Level 4 (96163) Complex EM visit Add On G2211 Diagnoses Impacted cerumen, bilateral H61.23 Acute non-recurrent pansinusitis J01.40 Sinusitis location: pansinusitis Chronicity: acute Recurrence: non-recurrent CPT Codes Office Procedure - CPT: 58072-Pgm Irrigation/Lavage ([id number]) Assessment & Plan Assessment & Plan (1) Impacted cerumen, bilateral: Code(s): H61.23 - Impacted cerumen, bilateral (2) Sinusitis: Code(s): J32.9 - Chronic sinusitis, unspecified Qualifiers: Sinusitis location: pansinusitis Chronicity: acute Recurrence: non- recurrent Qualified Code(s): J01.40 - Acute pansinusitis, unspecified Plan . Medications: New fluticasone propionate 50 mcg/actuation administer into each nostril 1 spray intranasal BID 16 grams 0RF amoxicillin-pot clavulanate 875-125 mg 1 tab PO BID 14 tabs 0RF 7 days
[2024-05-29 12:58] VITALS: BP 128/72; PULSE 71; RESP 13; O2SAT 99; BMI 24.3
== END 2024-05-29 14:07 | disposition home or self-care (01) ==
PROVIDERS: PCP Nurse Practitioner Family; Visit Provider Nurse Practitioner Family
DX: J01.40 Acute pansinusitis, unspecified (principal); H61.23 Impacted cerumen, bilateral

== ENCOUNTER → 2024-05-29 12:48 | Outpatient (BNVA) | payer OTHER, SELFPAY | PROVIDERS: PCP Nurse Practitioner Family; Visit Provider Nurse Practitioner Family | DX: H61.23 Impacted cerumen, bilateral (principal); J01.40 Acute pansinusitis, unspecified | CPT/HCPCS: 69209 ==

== ENCOUNTER 2025-05-18 13:00 | Outpatient (AMB) | payer OTHER, SELFPAY ==
--- NOTE | 2025-05-18 13:06 | MHC.PC.OV ---
Vital Signs 05/18/25 13:12 Height 5 ft 4 in Weight 133 lb 2 oz BMI 22.8 BP 126/72 Blood Pressure Location Rt brachial Position Sitting Respiration 12 Pulse 78 Pulse Source Pulse Oximeter Temp 97.1 F Temp Source Oral Pulse Oximetry (%) 99 Oxygen Delivery Method Room Air Intake Visit Reasons: cpe Intake Note: CPE Reheater Required: No Allergies No Known Allergies Allergy (Verified 05/18/25 13:22) Medication List - Last Reconciled 05/18/25 by MAURA Elizondo- acetaminophen (Acetaminophen Extra Strength) 500 mg PO Q6H PRN fluticasone propionate 50 mcg/actuation 1 spray intranasal BID lisinopril 20 mg PO DAILY Tobacco use date assessed: 05/18/25 Dental Screening Dental Screen Date: 05/18/25 Did you have a dental visit in the last 12 months?: Yes Did you have a dental problem in the last 6 months where you did not have access to dental care?: No Was dental information given to patient?: Patient has dentist HPI HPI Comments History of Present Illness Details 64-year-old female with hyperlipidemia, bicep tedonitis, elevated lipoprotein B, graves disease, HTN, mild anxiety, osteopenia, fhx breast ca (MOM), chronic leukopenia Surgery: None Social: works at [employer] Family hx: Father: age 49 of second [place]; Mom Breast CA Health Maintenance: Colon age 54 @ [facility]. Normal. Interested in cologaurd. Mammo 02/2024, every other year DEXA 2023 osteopenia PAP @ [facility] in [facility] Fall 2021 normal. Aged out. Reports hx of normal. No family hx. Tdap UTD in last 10 years. Flu 05/18/25 declined Specialists: Endo - Dr Jorge Johns > cleared Ortho Optho glasses Derm History of Present Illness The patient is a 64-year-old female presenting for a complete physical exam. Dental Infection and Otitis Media: - The patient reports a two to three-week history of an intermittent right-sided toothache. - She developed an associated right earache about a week and a half ago. - She visited her dentist last week, where an X-ray revealed a low-grade infection on a right molar. - She is currently finishing a course of amoxicillin prescribed by the dentist and reports her symptoms are improving, though she still has some sensation in her ear. - She has a refill for the amoxicillin and plans to undergo a root canal and crown procedure starting in June. Hyperlipidemia: - The patient has a history of hyperlipidemia with elevated lipoprotein B, which she manages with citrus bergamot. - A prior coronary artery calcium score was 0, and she was informed she has a genetic predisposition to high cholesterol. Hypertension: - The patient's hypertension is managed with lisinopril 20 mg daily. Health Maintenance: - Her last bone density scan in 2023 showed osteopenia, and she takes calcium with vitamin D. - Her last mammogram was in February 2024, and she is following an bnnnx-cxrxt-pode screening schedule. - She has aged out of Pap smears as of 2021 due to a history of normal results. - She expressed hesitation about completing a Cologuard test due to concerns about false positives, though her last colonoscopy at age 54 was normal. Musculoskeletal history: - The patient has a history of chronic aches and pains in multiple joints managed with Tylenol. - She had L shoulder pain last year which has resolved with physical therapy, and she now has a full range of motion. Past Medical History - Hyperlipidemia with elevated lipoprotein B - Hypertension - Seasonal allergies - Chronic arthralgia - Osteopenia, diagnosed in 2023 - History of shoulder pain, resolved with physical therapy - Coronary artery calcium score of 0 on prior testing Past Surgical History - No surgeries since last visit. Family History - Breast cancer - No family history of gynecologic cancer - No family history of colorectal cancer Social History - Screening: PHQ, ThriveScreen, and Audit screens were negative; TANNER-7 score was 0. - Employment: Patient is employed and reports high job satisfaction, with plans to continue working until age 68. - Diet: Reports her diet is stable and good. - Activity: She must be cautious with her shoulder during physical activities such as mowing the lawn or raking leaves. Health Maintenance - Breast Cancer Screening: The patient had a mammogram in February 2024 and is on an qwnkh-[id number]-muna screening schedule. - Colon Cancer Screening: Her last colonoscopy at age 54 was normal. - A new Cologuard test was ordered, as it has come a long way in accuracy; if negative, it is a 3-year screen. - Cervical Cancer Screening: Her last Pap smear was in 2021; she has aged out of routine screening according to guidelines due to a history of normal results. - Bone Density Screening: A DEXA scan in 2023 showed osteopenia. - The next scan is recommended in 2025. - Vaccinations: The patient does not typically get a flu shot. - Supplements: The patient takes calcium with vitamin D for bone health, citrus bergamot for cholesterol, and turmeric for inflammation. - She is inconsistent with magnesium supplementation. Review of Systems - General: Reports feeling run down last week but feels back to normal now. - Denies fever. - HEENT: Reports an intermittent right-sided toothache for the past 2-3 weeks and a right-sided earache for the past week and a half. Reports that she had an eye exam recently her traffic division commanding officer recommended that she have some certain lab testing done which she is not sure what. I will have my office call over to Dr. Damon's office to follow up - Reports a mild runny nose. - Cardiovascular: Denies chest pain or shortness of breath. - Gastrointestinal: Reports normal bowel function. - Genitourinary: Reports normal urinary function. - Musculoskeletal: Reports chronic aches and pains in multiple joints. - Reports resolved shoulder pain with full range of motion. - Skin: Reports a recurring brown spot on her torso for which she has a dermatology appointment. Physical Exam General: Well developed, well nourished, in no acute distress. Appears stated age. Head: Normocephalic, atraumatic. Eyes: Pupils are equal, round and reactive to light and accommodation. Conjunctivae are clear. Scleras nonicteric bilat. Vision grossly normal. Ears: TMs clear AU, EACS WNL. Teeny, tiny bit of wax, but not obstructed. Fluid behind the eardrum on R noted. Nose: Patent, without discharge. Neck: No carotid bruit bilat. Supple, no adenopathy or thyromegaly. Breast: Edu on SBE Lungs: Clear to auscultation bilaterally. No rales, rhonchi or wheeze noted. Good air flow in all lui. Heart: Regular rate and rhythm. No murmurs, click, rubs or gallops are noted. Abdomen: Bowel sounds present in all quadrants. The abdomen is soft, nontender, with no masses or organomegaly noted. No hernias are noted. : Deferred. Reviewed recommendations for routine SAMPLE COLOR MAKER Pulses: Peripheral pulses are equal and palpable bilaterally. Extremities: No clubbing, cyanosis nor edema is noted. Neurologic: Gait and station normal. Cranial Nerves 2-12 intact. Motor strength grossly symmetrical and intact. No sensory loss. Balance normal. Skin: No rashes, ulcers, or lesions noted. Turgor is good. Skin color is good. Hair and nails are without abnormalities. Psych: Normal eye contact, affect and mood appropriate, and normal interactions. Patient is alert and appropriate to context. Results - Bone Density Scan (2023): Osteopenia. - Mammogram (February 2024): Normal findings reported. - Pap Smear (2021): Normal. - Dental X-ray (last week): Low-grade infection on a right molar. - Coronary Artery Calcium Score (prior study): 0. Medical Decision Making The patient is a 64-year-old female here for a complete physical exam with a chief complaint of right tooth and ear pain. Her symptoms are improving with amoxicillin for a dentist-diagnosed molar infection. My exam revealed right-sided serous otitis media, which is likely contributing to her ear symptoms. The management will focus on symptomatic relief with Flonase to decompress the eustachian tube and a precautionary dose of Sudafed before her upcoming flight to prevent barotrauma. Her chronic conditions, including hypertension and hyperlipidemia, are stable. Her blood pressure is well-controlled at 126/72 mmHg on lisinopril, which will be refilled. Given her genetic predisposition to hyperlipidemia and a reassuring coronary calcium score of 0, continuing citrus bergamot and obtaining fasting labs is a reasonable approach. Health maintenance was a serrano part of the visit. I addressed her concerns regarding Cologuard, explained its improved accuracy, and reordered the test. She is up to date on her mammogram, has aged out of Pap smears, and her next bone density scan is not due until 2025. Her plan to see a bottom buffer for a recurring skin lesion is appropriate, though it appears benign on today's exam. Will need to fu with Optho recommendations once I hear from their office. Plan 1. Right Molar Infection And Serous Otitis Media - The patient will continue the current course of amoxicillin. - She was advised to fill the refill for amoxicillin and take it with her to [place] as a precaution. - Recommended restarting Flonase nasal spray bilaterally to help decompress the ear and relieve fluid. - She may consider using Sudafed once before her flight to prevent barotrauma, but should be mindful of its effect on blood pressure. - Follow up with her dentist for the planned root canal is recommended. 2. Hypertension - Continue lisinopril 20 mg daily, as blood pressure is well-controlled. - A 90-day refill has been sent to the pharmacy. 3. Hyperlipidemia - Continue citrus bergamot supplementation. - Obtain fasting labs, including a lipid panel, to monitor levels. 4. Preventative Care - A new order for a Cologuard test has been placed for colon cancer screening. - Continue calcium and vitamin D for osteopenia; follow up with a bone density scan in 2025. - Follow up with dermatology in August for evaluation of a skin lesion as scheduled. - Return to the office in one year for an annual physical exam, or sooner as needed. Patient Instructions - Make sure you finish your current prescription of amoxicillin for the tooth infection. - Fill the refill for amoxicillin and bring it with you to [place] in case your symptoms return. - Please start using Flonase nasal spray in both nostrils again. - This will help with the fluid and pressure in your right ear. - You can take one dose of Sudafed before your airplane flight to prevent ear pain, but be aware it can raise your blood pressure. - Continue taking lisinopril for your blood pressure. - A refill has been sent to your pharmacy. - Please go to the lab for fasting blood work when you have a moment. - A new Cologuard kit for colon cancer screening will be mailed to your home. - Please complete the test as it is an important screening. - Keep your dermatology appointment in August to have the brown spot on your skin checked. - Please follow up in the office in one year for your next physical exam, or sooner if any issues arise. Consent Patient was informed and verbally consented to the use of an ambient scribe for clinic note documentation during this visit. An additional 10 minutes was spent addressing the problem(s) noted at todays visit. This includes time spent before the visit reviewing the chart, time spent during the visit, and time spent after the visit on documentation reviewing laboratory results, diagnostic imaging, medications, performing a medically necessary evaluation, counseling on diagnoses, care coordination, ordering appropriate tests, ordering appropriate medications, review of tests performed by other providers, reporting test results with the patient, communication with other healthcare providers. [facility] Medical History Biceps tendonitis on right Family History Mother Breast cancer Father CAD (coronary artery disease) Brother CAD (coronary artery disease) Hyperlipemia Social History Housing: House Alcohol intake: current Alcohol intake frequency: holidays/special occasions only Patient Tobacco Use Status: Never used Tobacco e-Cigarette/Vaping Use: Never Used Second Hand Smoke Exposure: No Current occupational status: employed Current occupation: Physical therapy/ right hand dominant Cognitive needs: No Hearing needs: No Vision needs: Yes Questionnaire PHQ-9 Over the last 2 weeks, how often have you been bothered by any of the following problems? 1. Little interest or pleasure in doing things: not at all 2. Feeling down, depressed, or hopeless: not at all 3. Trouble falling or staying asleep, or sleeping too much: not at all 4. Feeling tired or having little energy: not at all 5. Poor appetite or overeating: not at all 6. Feeling bad about yourself - or that you are a failure or have let yourself or your family down: not at all 7. Trouble concentrating on things, such as reading the newspaper or watching television: not at all 8. Moving or speaking so slowly that other people could have noticed. Or the opposite - being so fidgety or restless that you have been moving around a lot more than usual: not at all 9. Thoughts that you would be better off or of hurting yourself in some way: not at all Total score: 0 Depression Screening Interpretation: Negative Depression Screening Done: Yes 20574 - PHQ-9 Billing: Yes Source: Developed by Drs. Reed Harrison, Rosita Patton, Crispin Michele and colleagues, with an educational rick from [employer]. Thrive Questionnaire Date Thrive assessed: 05/18/25 I am a: Patient What is your living situation today?: I have a steady place to live Within the past 12 months, did the food you bought not last and you didn't have the money to get more?: Never true Within the past 12 months, did you worry whether your food would run out before you got money to buy more?: Never true Do you have trouble paying for medicines?: No Do you have trouble getting transportation to medical appointments?: No Do you have trouble paying your heating and electricity bill?: No Do you have trouble taking care of your child, family member or friend?: No Do you have trouble with day-to-day activities such as bathing, preparing meals, shopping, managing finances, etc.?: No Are you currently unemployed and looking for a job?: No Are you interested in more education?: No Please select the resources that you would like help with: None Currently or been in a relationship where the following occur: No concerns reported THRIVE Score: 0 AUDIT C Alcohol Use Questionnaire (AUDIT-C) 1. How often do you have a drink containing alcohol?: Never 3. How often do you have six or more drinks on one occasion?: Never Total Score: 0 Score Reviewed/Action Taken: Yes TANNER-7 AMB Questionnaire TANNER-7 Date TANNER - 7 assessed: 05/18/25 Feeling nervous, anxious, or on edge: 0 = Not at all Not being able to stop or control worryin = Not at all Worrying too much about different things: 0 = Not at all Trouble relaxin = Not at all Being so restless that it is hard to sit still: 0 = Not at all Becoming easily annoyed or irritable: 0 = Not at all Feeling afraid as if something awful might happen: 0 = Not at all Total TANNER-7 score (0-4 normal; 5-9 mild; 10-14 moderate; 15-21 severe): 0 Source: Developed by Drs. Reed Harrison, Rosita Patton, Crispin Michele and colleagues, with an educational rick from [employer]. TANNER-7 Assessment Billing TANNER-7 Assessment Tool: TANNER-7 Assessment 60258 Physical exam (Primary Care) Vital Signs: Last Vital Signs Temp 97.1 F 05/18/25 13:12 Pulse 78 05/18/25 13:12 Resp 12 05/18/25 13:12 BP 126/72 05/18/25 13:12 Pulse Ox 99 05/18/25 13:12 Oxygen Delivery Method Room Air 05/18/25 13:12 BMI result Body Mass Index 22.8 Tobacco/Smoking Status: Tobacco use Status Tobacco use date assessed 05/18/25 05/18/25 13:08 Patient Tobacco Use Status Never used Tobacco 05/18/25 13:08 e-Cigarette/Vaping Use Never Used 05/18/25 13:08 PHQ-9: PHQ-9 Score PHQ-9: Total score 0 05/18/25 13:22 Depression Screening Interpretation: Negative Thrive Assessment: Date of Thrive Assessment Date Thrive assessed 05/18/25 05/18/25 13:08 Currently or been in a relationship where the following occur: No concerns reported Coding Level of Care Code Est Pt Level 2 (22716) Est Pt Prev Care 40-64y(72382) Diagnoses Adult general medical exam Z00.00 Primary hypertension I10 Hypertension type: primary hypertension Family history of [place] (myocardial infarction) Z82.49 Agatston coronary artery calcium score less than 100 R93.1 Osteopenia M85.80 History of colonoscopy Z98.890 Family history of breast cancer Z80.3 History of mammogram Z92.89 History of Papanicolaou smear of cervix Z92.89 Dental infection K04.7 Non-recurrent acute serous otitis media of right ear H65.01 Chronicity: acute Laterality: right Recurrence: non-recurrent Additional Codes TANNER-7 Assessment Billing - TANNER-7 Assessment Tool: TANNER-7 Assessment [id number] ([id number]) PHQ-9 - 79522 - PHQ-9 Billing: Yes ([id number]) Assessment & Plan Assessment & Plan (1) Adult general medical exam: Onset Date: ~05/18/25 Code(s): Z00.00 - Encounter for general adult medical examination without abnormal findings Category: Medical (2) HTN (hypertension): Comment: well controlled on lisinopril 20mg , cont Code(s): I10 - Essential (primary) hypertension Category: Medical Qualifiers: Hypertension type: primary hypertension Qualified Code(s): I10 - Essential (primary) hypertension (3) Family history of [place] (myocardial infarction): Comment: DAD Code(s): Z82.49 - Family history of ischemic heart disease and other diseases of the circulatory system Category: Medical (4) Agatston coronary artery calcium score less than 100: Onset Date: ~03/03/24 Comment: SCORE OF 0 AT [facility] Code(s): R93.1 - Abnormal findings on diagnostic imaging of heart and coronary circulation Category: Medical (5) Osteopenia: Comment: DEXA 2023 Code(s): M85.80 - Other specified disorders of bone density and structure, unspecified site Category: Medical (6) History of colonoscopy: Onset Date: ~2014 Code(s): Z98.890 - Other specified postprocedural states Category: Medical (7) Family history of breast cancer: Code(s): Z80.3 - Family history of malignant neoplasm of breast Category: Medical (8) History of mammogram: Onset Date: ~2023 Code(s): Z92.89 - Personal history of other medical treatment Category: Medical (9) History of Papanicolaou smear of cervix: Onset Date: ~2021 Code(s): Z92.89 - Personal history of other medical treatment Category: Medical (10) Dental infection: Code(s): K04.7 - Periapical abscess without sinus (11) Serous otitis media: Code(s): H65.90 - Unspecified nonsuppurative otitis media, unspecified ear Qualifiers: Chronicity: acute Laterality: right Recurrence: non-recurrent Qualified Code(s): H65.01 - Acute serous otitis media, right ear Plan . Orders: Referrals Cologuard Test Z12.11 - Encounter for screening for malignant neoplasm of colon Medications: Refilled lisinopril 20 mg PO DAILY 90 tabs 1RF Discontinued amoxicillin-pot clavulanate 875-125 mg Discontinued Reason: Patient Completed Course 1 tab PO BID 7 days 14 tabs 0RF
[2025-05-18 13:12] VITALS: BP 126/72; PULSE 78; RESP 12; TEMP 36.2; O2SAT 99; BMI 22.8
== END 2025-05-18 13:46 | disposition home or self-care (01) ==
LOC: HO.HMCFM 13:01
PROVIDERS: PCP Nurse Practitioner Family; Visit Provider Nurse Practitioner Family
DX: Z00.00 Encounter for general adult medical examination without abnormal findings (principal); I10 Essential (primary) hypertension; R93.1 Abnormal findings on diagnostic imaging of heart and coronary circulation; M85.80 Other specified disorders of bone density and structure, unspecified site; K04.7 Periapical abscess without sinus; H65.01 Acute serous otitis media, right ear; Z12.11 Encounter for screening for malignant neoplasm of colon; Z80.3 Family history of malignant neoplasm of breast; Z82.49 Family history of ischemic heart disease and other diseases of the circulatory system

== ENCOUNTER → 2025-05-18 13:00 | Outpatient (BNVA) | payer OTHER, SELFPAY | PROVIDERS: PCP Nurse Practitioner Family; Visit Provider Nurse Practitioner Family | DX: Z00.00 Encounter for general adult medical examination without abnormal findings (principal); E78.5 Hyperlipidemia, unspecified; I10 Essential (primary) hypertension; R93.1 Abnormal findings on diagnostic imaging of heart and coronary circulation; K04.7 Periapical abscess without sinus; H65.01 Acute serous otitis media, right ear; M85.80 Other specified disorders of bone density and structure, unspecified site; Z92.89 Personal history of other medical treatment; Z98.890 Other specified postprocedural states; Z80.3 Family history of malignant neoplasm of breast; Z82.49 Family history of ischemic heart disease and other diseases of the circulatory system | CPT/HCPCS: 96127 ==